=== PATIENT | male | born 1980 | race Caucasian/White ===

== ENCOUNTER 2018-01-13 22:21 | Inpatient (IN) | payer OTHER ==
[~2018-01-13] VITALS: Ht 190.5 cm; Wt 135.6 kg
[~2018-01-13 22:21] MED LIST: AFRIN PUMPMIST15 ML NASB; ALBUTEROL0.09 MG/A1 INH; AMOXIL 875 MG875 MG PO; PREDNISONE 20MG20 MG PO; TESSALON PERLE100 MG PO; ZOFRAN4 M1 SL
--- NOTE | 2018-01-13 22:39 | ED CARDIAC/CP/PALPITATIONS ---
History of Present Illness General Chief Complaint: Chest Pain Stated Complaint: CHEST PAIN, SOB Source: patient, old records Exam Limitations: no limitations Vital Signs & Intake/Output Vital Signs & Intake/Output Vital Signs Date Time Temp Pulse Resp B/P B/P Pulse O2 O2 Flow FiO2 Mean Ox Delivery Rate 01/14 0034 100 Nasal 2.0L Cannula 01/14 0024 103 125/58 01/14 0005 129 18 120/68 98 Nasal 2.0L Cannula 01/14 0000 141 20 110/63 01/13 2359 141 18 110/63 97 Nasal 2.0L Cannula 01/13 2334 99.2 142 18 126/71 98 Room Air 01/13 2308 120 16 108/58 100 Nasal 2.0L Cannula 01/13 2300 160 118/60 01/13 2245 99.2 172 110/59 01/13 2240 99.3 169 20 110/59 97 Room Air ED Intake and Output 01/14 0000 01/13 1200 Intake Total 0 Output Total Balance 0 Intake, Oral 0 Patient 334 lb Weight Weight Standing Scale Measurement Method Allergies Coded Allergies: NO KNOWN ALLERGIES (10/31/14) Reconcile Medications Albuterol Sulfate (Albuterol Sulfate Hfa) 90 MCG HFA.AER.AD 2 PUFF INH Q4-6 PRN PRN SHORTNESS OF BREATH 90 MCG PER PUFF Amoxicillin (Amoxil 875 MG Tablets) 875 MG TAB 1 TAB PO BID SINUSITIS Benzonatate (Tessalon Perle) 100 MG CAPSULE 1 CAP PO TID PRN COUGH Ondansetron (Zofran Odt) 4 MG TAB.RAPDIS 1 ODT SL Q6P PRN NAUSEA OXYMETAZOLINE HCL (Afrin) 0.05 % SPRAY 2 SPRAY NASB BID sinusitis Prednisone 20 MG TABLET 1 TAB PO BID sinusitis Triage Nurses Notes Reviewed? yes Onset: Morning Duration: hour(s):, constant, continues in ED, getting worse Timing: recent history Quality/Severity: moderate, pressure Location: substernal Radiation: no radiation Activities at Onset: activity Prior Chest Pain/Card Workup: no prior chest pain Modifying Factors: Improves With: rest. Worsens With: exercise, movement. Nitro Today/Relief: no nitro taken today Aspirin Today: no aspirin today Associated Symptoms: diaphoresis, fatigue, shortness of breath HPI: The morning prior to admission she reports mild progressive pressure in his chest accompanied with increasing dyspnea on exertion resolved with rest. Prior to admission he awoke diaphoretic with pounding heart and moderate chest heaviness constant nonradiating worse with exertion. He denies fever chills nausea vomiting diarrhea abdominal pain headache dysuria rash bleeding. Past History Travel History Traveled to [place] past 21 day No Medical History Any Pertinent Medical History? see below for history Neurological: NONE EENT: NONE Cardiovascular: NONE Respiratory: NONE Gastrointestinal: NONE Hepatic: NONE Renal: NONE Musculoskeletal: NONE Psychiatric: NONE Endocrine: NONE Blood Disorders: thalassemia minor Cancer(s): NONE Surgical History Surgical History: non-contributory Psychosocial History What is your primary language Citizen Of [place] Family History Hx Contributory? Yes Review of Systems Review of Systems Constitutional: Reports: see HPI, diaphoresis, malaise, weakness. EENTM: Reports: no symptoms. Respiratory: Reports: see HPI, short of breath. Cardiovascular: Reports: see HPI, chest pain, palpitations. GI: Reports: no symptoms. Genitourinary: Reports: no symptoms. Musculoskeletal: Reports: no symptoms. Skin: Reports: no symptoms. Neurological/Psychological: Reports: no symptoms. Hematologic/Endocrine: Reports: no symptoms. Immunologic/Allergic: Reports: no symptoms. All Other Systems: Reviewed and Negative Physical Exam Physical Exam General Appearance: well developed/nourished, alert, awake, anxious, moderate distress, obese Head: atraumatic, normal appearance Eyes: Bilateral: normal appearance, PERRL, EOMI. Ears, Nose, Throat: normal pharynx, normal ENT inspection, hearing grossly normal Neck: normal inspection, supple, full range of motion, no midline tenderness Respiratory: normal breath sounds, chest non-tender, no respiratory distress, quiet respiration, lungs clear Cardiovascular: normal peripheral pulses, tachycardia, irregularly irregular, norml femoral pulses equa Peripheral Pulses: 4+ carotid (R), 4+ carotid (L) Gastrointestinal: normal bowel sounds, soft, non-tender, no organomegaly Back: normal inspection, normal range of motion, no vertebral tenderness Extremities: normal inspection, normal capillary refill, normal range of motion, no edema Neurologic/Psych: no motor/sensory deficits, awake, alert, oriented x 3, normal gait, normal mood/affect, 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 Skin: intact, normal color Lymphatic: no anterior cervical lucio Core Measures ACS in differential dx? Yes No ASA d/t Pharmacological CI CVA/TIA Diagnosis No Sepsis Present: No Sepsis Focused Exam Completed? No Progress Differential Diagnosis: atrial fibrillation, hyperkalemia, hyperthyroid, PSVT Plan of Care: Orders Procedure Date/time Status Heart Healthy Diet 01/14 B Active Pathway - chart 01/14 011 Active House Staff 01/14 0112 Active Patient Data 01/14 011 Active Patient Data 01/14 0048 Active OXYGEN SETUP (GEN) 01/14 33 Active Saline Lock 01/14 33 Active Admit to inpatient 01/14 003 Active Vital Signs 01/14 33 Active Activity/Ambulation 01/14 33 Active Code Status 01/14 33 Active VTE Mechanical Prophylaxis 01/14 UNK Active Intake & Output 01/14 UNK Active TSH REFLEX 01/14 2236 Active TROPONIN LEVEL 01/14 2236 Active PARTIAL THROMBOPLASTIN TIME 01/14 2236 Complete PROTHROMBIN TIME 01/14 2236 Complete MAGNESIUM 01/14 2236 Active COMPREHENSIVE METABOLIC PANEL 01/14 2236 Active CBC WITHOUT DIFFERENTIAL 01/14 2236 Complete EKG 01/13 2222 Active Current Medications Sig/Deb Start time Last Medication Dose Stop Time Status Admin Acetaminophen 650 MG Q6P PRN 01/14 0115 UNVr (Tylenol) Diltiazem HCl 60 MG TID 01/14 0045 UNVr (Cardizem) Heparin Sodium 25,000 UNIT Q24H 01/14 004 UNVr (Porcine) (Heparin) Sodium Chloride 500 ML Diltiazem HCl 20 MG ONCE ONE 01/13 2345 UNVr 01/14 (Cardizem) 01/13 2346 0000 Laboratory Tests 01/13/18 2300: Anion Gap 10, Estimated GFR > 60, BUN/Creatinine Ratio 15.0, Glucose 109 H, Calcium 9.6, Magnesium 2.0, Total Bilirubin 1.2, AST 29, ALT 37, Alkaline Phosphatase 65, Troponin I < 0.01, Total Protein 7.2, Albumin 4.4, Globulin 2.8, Albumin/Globulin Ratio 1.6, TSH &T3 &Free T4 Intrp Pending, PT 13.5 H, INR 1.24 H, APTT 31, CBC w Diff NO MAN DIFF REQ, RBC 6.31 H, MCV 63.5 L, MCH 19.9 L, MCHC 31.4 L, RDW 15.5 H, MPV 9.7, Gran % 65.4, Lymphocytes % 24.8, Monocytes % 8.0, Eosinophils % 1.7, Basophils % 0.1, Absolute Granulocytes 5.6, Absolute Lymphocytes 2.1, Absolute Monocytes 0.7 H, Absolute Eosinophils 0.1, Absolute Basophils 0 Diagnostic Imaging: Viewed by Me: Radiology Read. Discussed w/RAD: Radiology Read. CXR Impression: no acute abnormality (No acute abnormality the chest) Initial ED EKG: normal axis, AFIB Rhythm Strip: atrial fibrillation Departure Departure Disposition: STILL A PATIENT Condition: Stable Clinical Impression Primary Impression: Atrial fibrillation with rapid ventricular response Referrals: Dali CORBETT,Christiano Lucas (PCP/Family) Departure Forms: Customer Survey General Discharge Information Admission Note Spoke With: Rito Adorno MD Documentation of Exam: Documentation of any treatments & extenuating circumstances including Concerns Regarding Discharge (functional status, medication knowledge or non-compliance, living conditions, etc.) that warrant an admission rather than observation: Cardiac monitoring supplemental oxygen IV heparin serial lab exam medication adjustment cardiology evaluation continuing care discharge planning Critical Care Note Critical Care Note Critical Care Time: 30-74 min (45)
[2018-01-13 23:11] LABS: ABSOLUTE BASOPHIL COUNT 0 /CUMM (0.0-0.2); ABSOLUTE EOSINOPHIL COUNT 0.1 /CUMM (0.0-0.7); ABSOLUTE GRANULOCYTE CT 5.6 /CUMM (1.4-6.5); ABSOLUTE LYMPH COUNT 2.1 /CUMM (1.2-3.4); ABSOLUTE MONOCYTE COUNT 0.7 /CUMM (0.10-0.60); BASOPHIL % 0.1 % (0.0-2.0); EOSINOPHIL % 1.7 % (0-5); GRANULOCYTE % 65.4 % (42.2-75.2); HEMATOCRIT 40.1 % (42-52); MEAN CORPUSCULAR HGB 19.9 PG (27.0-31.0); MEAN CORPUSCULAR HGB CONC 31.4 G/DL (33.0-37.0); MEAN CORPUSCULAR VOLUME 63.5 FL (80.0-94.0); MEAN PLATELET VOLUME 9.7 FL (7.4-10.4); PLATELET COUNT 275 /CUMM (130-400); RBC DISTRIBUTION WIDTH 15.5 % (11.5-14.5); RED BLOOD CELL CT 6.31 /CUMM (4.70-6.10); WHITE BLOOD CELL COUNT 8.5 /CUMM (4.8-10.8)
--- NOTE | 2018-01-13 23:13 | RADIOLOGY REPORT ---
EXAMINATION: XR PORTABLE CHEST CLINICAL INFORMATION: Chest pain. Rapid atrial fibrillation COMPARISON: Chest x-ray 10/31/2014 TECHNIQUE: Portable frontal view of the chest was obtained. 10:40 PM FINDINGS: Lung volume is low. There is no acute change. No pulmonary vascular congestion. No infiltrate or pleural effusion. The cardiac and mediastinal contours are unchanged since prior chest x-ray 2014. IMPRESSION: No acute abnormality the chest.
[2018-01-13 23:22] LABS: PT 13.5 SEC (9.4-12.5); PTT 31 SEC (25-37)
--- NOTE | 2018-01-14 00:50 | History & Physical ---
Isaac Fowler 01/14/18 0049: General Information and HPI MD Statement: I have seen and personally examined JOSEPHINE CINTRON and documented this H&P. The patient is a 37 year old M who presented with a patient stated chief complaint of HEART PALPITATIONS, FATIGUE, SHORTNESS OF BREATH. Source of Information: patient Exam Limitations: no limitations History of Present Illness: 37-year old male with PMH of obesity and thalassemia minor who presented to the ED for chest pain and shortness of breath. Patient was in normal state of health until this morning, when he awoke with racing heartbeat and shortness of breath. As the day progressed, he developed chest discomfort. He had difficulty lifting objects and waking up a flight of stairs, both of which are not usual for him. After laying down for bed at night, his heart continued to race and he decided to come to the emergency department. Allergies/Medications Allergies: Coded Allergies: NO KNOWN ALLERGIES (10/31/14) Compliance With Home Meds: GOOD Past History Medical History Neurological: NONE EENT: NONE Cardiovascular: NONE Respiratory: NONE Gastrointestinal: NONE Hepatic: NONE Renal: NONE Musculoskeletal: NONE Psychiatric: NONE Endocrine: NONE Blood Disorders: thalassemia minor Cancer(s): NONE Surgical History Surgical History: non-contributory Past Family/Social History Psychosocial History Where do you live? Home Who Do You Live With? spouse, child Primary Language: Mosotho Smoking Status: Never Smoked ETOH Use: denies use Illicit Drug Use: denies illicit drug use Functional Ability ADLs Independent: dressing, eating, toileting, bathing. 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 EENTM: Reports: no symptoms. Cardiovascular: Reports: chest pain, palpitations. Respiratory: Reports: short of breath. GI: Reports: no symptoms. Genitourinary: Reports: frequency. Musculoskeletal: Reports: no symptoms. Skin: Reports: no symptoms. Neurological/Psychological: Reports: no symptoms. Exam & Diagnostic Data Last 24 Hrs of Vital Signs/I&O Vital Signs Date Time Temp Pulse Resp B/P B/P Pulse O2 O2 Flow FiO2 Mean Ox Delivery Rate 01/14 0300 98.7 120 18 124/80 98 Nasal Cannula 01/14 146 99.2 144 18 124/77 08/16 0146 144 18 124/77 95 Nasal 2.0L Cannula 01/14 0034 100 Nasal 2.0L Cannula 01/14 0024 103 125/58 01/14 0005 129 18 120/68 98 Nasal 2.0L Cannula 01/14 0000 141 20 110/63 01/13 2359 141 18 110/63 97 Nasal 2.0L Cannula 01/13 2334 99.2 142 18 126/71 98 Room Air 01/13 2308 120 16 108/58 100 Nasal 2.0L Cannula 01/13 2300 160 118/60 01/13 2245 99.2 172 110/59 01/13 2240 99.3 169 20 110/59 97 Room Air Intake & Output 01/14 0800 01/14 0000 01/13 1600 Intake Total 0 Output Total Balance 0 Intake, Oral 0 Patient 293 lb 334 lb Weight Weight Bed scale Standing Scale Measurement Method Physical Exam General Appearance Alert, Oriented X3, Cooperative, No Acute Distress, morbidly obese Skin No Rashes, No Breakdown, No Significant Lesion Skin Temp/Moisture Exam: Warm/Dry HEENT Atraumatic, PERRLA, EOMI Neck Supple, No JVD Cardiovascular Normal S1, Normal S2, No Murmurs, tachycardic, irregularly irregular rhythm Lungs Clear to Auscultation, Normal Air Movement Abdomen Normal Bowel Sounds, Soft, No Tenderness, No Masses Neurological Normal Gait, Normal Speech, Normal Tone, Sensation Intact, Cranial Nerves 3-12 NL Extremities No Clubbing, No Cyanosis, No Edema, Normal Pulses Last 24 Hrs of Labs/Ford: Laboratory Tests 01/13/18 2300: Anion Gap 10, Estimated GFR > 60, BUN/Creatinine Ratio 15.0, Glucose 109 H, Calcium 9.6, Magnesium 2.0, Total Bilirubin 1.2, AST 29, ALT 37, Alkaline Phosphatase 65, Troponin I < 0.01, Total Protein 7.2, Albumin 4.4, Globulin 2.8, Albumin/Globulin Ratio 1.6, TSH &T3 &Free T4 Intrp 2.480, PT 13.5 H, INR 1.24 H, APTT 31, CBC w Diff NO MAN DIFF REQ, RBC 6.31 H, MCV 63.5 L, MCH 19.9 L, MCHC 31.4 L, RDW 15.5 H, MPV 9.7, Gran % 65.4, Lymphocytes % 24.8, Monocytes % 8.0, Eosinophils % 1.7, Basophils % 0.1, Absolute Granulocytes 5.6, Absolute Lymphocytes 2.1, Absolute Monocytes 0.7 H, Absolute Eosinophils 0.1, Absolute Basophils 0 Microbiology 01/14 8834 URINE ROUT: Urine Culture - ORD Diagnostic Data EKG Results Afib, HR 150-180 CXR Results No acute abnormality the chest. Other Results CTA Chest No pulmonary embolism or other acute intrathoracic abnormality. Assessment/Plan Assessment: 37 year old male w/ PMH of thalassemia minor and obesity presented to the ED with complaints of chest pain, palpitations and shortness of breath. Found to have new onset A. fib and admitted to telemetry. Problem list/plan: Atrial fibrillation DVT prophylaxis: IV heparin ALPS Heart healthy diet Patient is full code As Ranked By This Provider Problem List: 1. Atrial fibrillation with rapid ventricular response Core Measures/Misc (02/15) Acute Coronary Syndrome ACS Diagnosis: No Congestive Heart Failure Congestive Heart Failure Diagnosis No Cerebrovascular Accident CVA/TIA Diagnosis: No VTE (View Protocol) VTE Risk Factors Acute Medical Illness No Mechanical VTE Prophylaxis d/t N/A MechProphylax Ordered No VTE Pharm Prophylaxis d/t NA PharmProphylax ordered Sepsis (View protocol) Sepsis Present: No If YES complete Sepsis Event Note If YES complete Sepsis Event Note Rito Adorno MD 01/14/18 7236: General Information and HPI Allergies/Medications Home Med list Aspirin (Aspirin*) 81 MG TAB.CHEW 1 TAB PO DAILY BLOOD THINNER Metoprolol Succ XL (Toprol XL) 25 MG TAB 1 TAB PO DAILY A.FIB . Multivitamin (Daily Multiple Vitamin) 1 EACH TABLET 1 TAB PO DAILY SUPPLEMENT (Reported) Core Measures/Misc (02/15) Sepsis (View protocol) If YES complete Sepsis Event Note If YES complete Sepsis Event Note Attending MD Review Statement Attending Statement Attending MD Statement: examined this patient, discuss w/resident/PA/ELECTRONIC SEMICONDUCTOR PROCESSOR, agreed w/resident/PA/ELECTRONIC SEMICONDUCTOR PROCESSOR Attending Assessment/Plan: Patient is seen and examined independently by me. Care plan discussed with medical diagnostic radiographer and resident. I agree with the physical exam findings and plan of care as outlined above with the following changes and additions. 35 yo M with history of thalassemia minor presented with pleuritic chest pain, SOB and palpitation. He has pressure like lower mid chest pleuritic pain since morning with SOB/DEL CID. His chest pain and SOB progressively worsen during the afternoon and by 8:30 pm, he has palpitation and diaphoresis as well. He had just travelled to [place] and returned on 01/09. He denies leg swelling or pain. On exam, heart: irregular, irregular, S1S2. Lungs: clear bilaterally. Ext: No edema. No Homans sign. In the ED, troponin <0.01. Cr 0.8. TSH 2.48. CXR shows no acute infiltrate or edema. CTA chest shows no acute PE. EKG shows A fib at [address] depression in lateral leads Patient is admitted to [facility] for new onset A fib, chest pain, r/o PE. Cardiac monitoring. Check serial troponin/EKG. Start Cardizem and IV heparin drip. Echocardiogram. Cardiology consult. MD PINEDA Muñoz MD, Michael 01/14/18 0522: General Information and HPI MD Statement: I have seen and personally examined JOSEPHINE CINTRON and documented this H&P. The patient is a 37 year old M who presented with a patient stated chief complaint of exertional dyspnea, palpitations, chest tightness. Source of Information: patient, old records Exam Limitations: no limitations History of Present Illness: 37 year old male with PMH of morbid obesity and thallasemia minor presented to the ED with complaints of chest tightness, palpitations, and exertional dyspnea. The patient's symptoms started suddenly this morning upon waking at 6AM. He stated at first he felt "off" and felt a little more short of breath with activity. Later in the day, he developed substernal discomfort. His just had an endometrial ablation and he was taking care of his three children and the . Doing activities he normally does, walking up the stairs, light lifting, he felt extremely short of breath and had to stop and rest to catch his breath, which is extremely unusual for him. He felt exhausted by normal activities. By that afternoon his chest tightness had worsened, pressure like in nature, nonradiating, not exactly painful but uncomfortable, like someone was stepping on his chest. That evening at 9PM, when he laid down he felt his heart racing with palpitations and decided to come to the emergency department. He never smoked, he drinks about 30oz of diet soda daily with no new changes. He rarely drinks alcohol and no coffee or tea. He never used cocaine or any other stimulants. His father had a myocardial infarction at 39 years old. He recently traveled to [place]. He has never had any thyroid problems or recent weight gain. He has weighed over 300lbs for the past 15 years he states. No sick contacts, no fevers, chills, sore throat, cough, diarrhea, or abdominal pain. He denies dysuria but states that he has noticed increased urinary frequency and volume that started today only. In the ED, he initially presented with a heart rate greater than 170 and irregularly rhythm, atrial fibrillation on EKG. He was treated with 10mg and 20mg IVP of diltiazem and started on 60mg PO TID of Cardizem in addition to a heparin drip. He was admitted to telemetry for management of new atrial fibrillation with rapid ventricular response. Allergies/Medications Compliance With Home Meds: GOOD Past History Travel History Traveled to [facility] past 21 day No Medical History Blood Disorders: thalassemia minor Surgical History Surgical History: non-contributory Past Family/Social History Family History Relations & Conditions if any FATHER FH: myocardial infarction, Onset: 30-40. Psychosocial History Where do you live? Home Who Do You Live With? spouse, child Primary Language: [place]o Smoking Status: Never Smoked ETOH Use: occasional use Illicit Drug Use: denies illicit drug use Functional Ability ADLs Independent: dressing, eating, toileting, bathing. 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 Denies: chills, fever. EENTM: Reports: no symptoms. Cardiovascular: Reports: chest pain, palpitations. Respiratory: Reports: short of breath. Denies: cough. GI: Denies: abdominal pain, diarrhea, nausea, vomiting. Genitourinary: Reports: frequency. Denies: dysuria. Musculoskeletal: Reports: no symptoms. Skin: Reports: no symptoms. Neurological/Psychological: Reports: no symptoms. Hematologic/Endocrine: Reports: no symptoms. Immunologic/Allergic: Reports: no symptoms. All Other Systems: Reviewed and Negative Exam & Diagnostic Data Last 24 Hrs of Vital Signs/I&O Vital Signs Date Time Temp Pulse Resp B/P B/P Pulse O2 O2 Flow FiO2 Mean Ox Delivery Rate 01/14 0300 98.7 120 18 124/80 98 Nasal Cannula 01/14 0146 99.2 144 18 124/77 01/14 0146 144 18 124/77 95 Nasal 2.0L Cannula 01/14 0034 100 Nasal 2.0L Cannula 01/14 0024 103 125/58 01/14 0005 129 18 120/68 98 Nasal 2.0L Cannula 01/14 0000 141 20 110/63 01/13 2359 141 18 110/63 97 Nasal 2.0L Cannula 01/13 2334 99.2 142 18 126/71 98 Room Air 01/13 2308 120 16 108/58 100 Nasal 2.0L Cannula 01/13 2300 160 118/60 01/13 2245 99.2 172 110/59 01/13 2240 99.3 169 20 110/59 97 Room Air Intake & Output 01/14 0800 01/14 0000 01/13 1600 Intake Total 0 Output Total Balance 0 Intake, Oral 0 Patient 133.016 kg 151.5 kg Weight Weight Bed scale Standing Scale Measurement Method Physical Exam General Appearance Alert, Oriented X3, Cooperative, No Acute Distress, morbidly obese Neck Supple, No JVD Cardiovascular Normal S1, Normal S2, No Murmurs, tachycardic, irregularly irregular rhythm Lungs Clear to Auscultation, Normal Air Movement Abdomen Normal Bowel Sounds, Soft, No Tenderness, No Masses Neurological Normal Gait, Normal Speech, Normal Tone, Cranial Nerves 3-12 NL Extremities No Clubbing, No Cyanosis, No Edema, Normal Pulses Last 24 Hrs of Labs/Ford: Laboratory Tests 01/13/18 2300: Anion Gap 10, Estimated GFR > 60, BUN/Creatinine Ratio 15.0, Glucose 109 H, Calcium 9.6, Magnesium 2.0, Total Bilirubin 1.2, AST 29, ALT 37, Alkaline Phosphatase 65, Troponin I < 0.01, Total Protein 7.2, Albumin 4.4, Globulin 2.8, Albumin/Globulin Ratio 1.6, TSH &T3 &Free T4 Intrp 2.480, PT 13.5 H, INR 1.24 H, APTT 31, CBC w Diff NO MAN DIFF REQ, RBC 6.31 H, MCV 63.5 L, MCH 19.9 L, MCHC 31.4 L, RDW 15.5 H, MPV 9.7, Gran % 65.4, Lymphocytes % 24.8, Monocytes % 8.0, Eosinophils % 1.7, Basophils % 0.1, Absolute Granulocytes 5.6, Absolute Lymphocytes 2.1, Absolute Monocytes 0.7 H, Absolute Eosinophils 0.1, Absolute Basophils 0 Diagnostic Data EKG Results afib with RVR, HR 170 CXR Results Lung volume is low. There is no acute change. No pulmonary vascular congestion. No infiltrate or pleural effusion. The cardiac and mediastinal contours are unchanged since prior chest x-ray 2014. IMPRESSION: No acute abnormality the chest. Other Results CTA Chest No pulmonary embolism or other acute intrathoracic abnormality. Assessment/Plan Assessment: 37 year old male with PMH of morbid obesity and thallasemia minor presented to the ED with complaints of chest tightness, palpitations, and exertional dyspnea. He was found to be new onset atrial fibrillation with rapid ventricular response and admitted to telemetry. Atrial fibrillation with rapid ventricular response: Received 10 and 20mg IVP diltiazem Continue Cardizem 60mg PO TID, increase dose or frequency as need to maintain HR < 110 Cardiology consultation Continue heparin gtt Patient has a CHADsvasc score of 0, consider aspirin or no anticoagulation Continue anticoagulation for now, cardiology may want to continue if planning cardioversion TSH wnl Check urinalysis and culture for reported increased urinary frequency Check additional troponin and EKG to evaluate for myocardial ischemia CTA negative for pulmonary embolism Check echocardiogram for structural heart disease Patient has morbid obesity and FH of premature CAD, may need stress testing as outpatient Heart healthy diet DVT ppx-on IV heparin gtt Full code the ED with complaints of chest tightness, palpitations, and exertional dyspnea. He was found to be new onset atrial fibrillation with rapid ventricular response and admitted to telemetry. Atrial fibrillation with rapid ventricular response: Received 10 and 20mg IVP diltiazem Continue Cardizem 60mg PO TID, increase dose or frequency as need to maintain HR < 110 Cardiology consultation 37 year old male with PMH of morbid obesity and thallasemia minor presented to the ED with complaints of chest tightness, palpitations, and exertional dyspnea. He was found to be new onset atrial fibrillation with rapid ventricular response and admitted to telemetry. Atrial fibrillation with rapid ventricular response: Received 10 and 20mg IVP diltiazem Continue Cardizem 60mg PO TID, increase dose or frequency as need to maintain HR < 110 Cardiology consultation As Ranked By This Provider Problem List: 1. Atrial fibrillation with rapid ventricular response Core Measures/Misc (02/15) Acute Coronary Syndrome ACS Diagnosis: No Congestive Heart Failure Congestive Heart Failure Diagnosis No Cerebrovascular Accident CVA/TIA Diagnosis: No VTE (View Protocol) VTE Risk Factors Acute Medical Illness No Mechanical VTE Prophylaxis d/t N/A MechProphylax Ordered No VTE Pharm Prophylaxis d/t NA PharmProphylax ordered Sepsis (View protocol) Sepsis Present: No If YES complete Sepsis Event Note If YES complete Sepsis Event Note
--- NOTE | 2018-01-14 02:33 | CT SCAN REPORT ---
EXAMINATION: CT ANGIOGRAM OF THE CHEST WITH AND WITHOUT CONTRAST (CT PULMONARY ANGIOGRAM FOR PE) CLINICAL INFORMATION: Rapid atrial fibrillation COMPARISON: Radiograph 01/13/2018 TECHNIQUE: Prior to contrast administration, noncontrast localization images were obtained. Subsequently, multidetector volumetric imaging was performed from the thoracic inlet to below the diaphragms following the administration of 70 mL Optiray 320 intravenous contrast. No contrast reaction reported. Sagittal, coronal, and MIP oblique sagittal reformatted images were obtained on the CT workstation, uploaded to PACS, and reviewed. Total exam dose-length product 989 mGy-cm. FINDINGS: QUALITY OF STUDY/CONTRAST BOLUS: Satisfactory PULMONARY ARTERIES: No central or segmental pulmonary emboli. THORACIC AORTA: No aneurysm or dissection. LUNG: The central airways are patent. No focal consolidation, nodules or masses. PLEURA: No pleural effusion or pneumothorax. MEDIASTINUM: Normal heart size. No pericardial effusion. No hilar or mediastinal lymphadenopathy. No evidence of septal bowing or right heart strain. CHEST WALL/AXILLA: No axillary or internal mammary lymphadenopathy. OSSEOUS STRUCTURES: No acute or suspicious osseous abnormality. UPPER ABDOMEN: Unremarkable. No reflux of contrast into the hepatic veins to suggest elevated right heart pressures. IMPRESSION: No pulmonary embolism or other acute intrathoracic abnormality. VTE: negative
[2018-01-14 03:00] VITALS: BP 124/80
[2018-01-14] MEDS ORDERED: DAILY MULTIPLE1 EACH PO (05:40)
--- NOTE | 2018-01-14 07:28 | PN- Housestaff ---
Cecy Chiu 01/14/18 0726: Subjective Follow-up For: New onset A. fib Subjective: Overnight patient stayed in A. fib with heart rate gone into the 160s, this morning he has been ranging between 120s-140s. Patient is complaining of chest pressure at the sternum feels like somebody is pushing down with one hand and palpitations. Denies dizziness, abdominal pain, blurry or double vision, tingling or numbness, weakness. Denies fever, night sweats, chills Review of Systems Constitutional: Reports: see HPI. Objective Last 24 Hrs of Vital Signs/I&O Vital Signs Date Time Temp Pulse Resp B/P B/P Pulse O2 O2 Flow FiO2 Mean Ox Delivery Rate 01/14 0300 98.7 120 18 124/80 98 Nasal Cannula 01/14 0146 99.2 144 18 124/77 01/14 0146 144 18 124/77 95 Nasal 2.0L Cannula 01/14 0034 100 Nasal 2.0L Cannula 01/14 0024 103 125/58 01/14 0005 129 18 120/68 98 Nasal 2.0L Cannula 01/14 0000 141 20 110/63 01/13 2359 141 18 110/63 97 Nasal 2.0L Cannula 01/13 2334 99.2 142 18 126/71 98 Room Air 01/13 2308 120 16 108/58 100 Nasal 2.0L Cannula 01/13 2300 160 118/60 01/13 2245 99.2 172 110/59 / 2240 99.3 169 20 110/59 97 Room Air Intake & Output 01/14 0800 01/14 0000 01/13 1600 Intake Total 80 0 Output Total Balance 80 0 Intake, IV 80 Intake, Oral 0 Patient 293 lb 334 lb Weight Weight Bed scale Standing Scale Measurement Method Physical Exam General Appearance: Alert, Oriented X3, Cooperative Cardiovascular: Normal S1, Normal S2, Irregular Lungs: Clear to Auscultation, Normal Air Movement Abdomen: Normal Bowel Sounds, Soft, No Tenderness, Obesity Extremities: No Cyanosis, No Edema, Normal Pulses Vascular: Normal Pulses, Pulses Symmetrical Assessment/Plan Assessment: 37 year old male w/ PMH of thalassemia minor and obesity presented to the ED with complaints of chest pain, palpitations and shortness of breath. Found to have new onset A. fib and admitted to telemetry. Problem list/plan: 1. New onset A. fib 2. Obesity #Atrial fibrillation with rapid ventricular response: Classification paroxysmal A. fib. ChadsVasc of 0. CT of chest negative for pulmonary embolism or intrathoracic abnormality. Patient does not have history of arrhythmias, nor history of hypertension. Possible etiology may be associated with sleep apnea. -Cardiology is following patient -Start metoprolol 50 mg 3 times daily normal sinus rhythm tonight. Will make patient n.p.o. at midnight for possible procedure #Obesity #Thalassemia minor: H/H 12.6/40.1, MCV 63.5. -Continue to monitor DVT prophylaxis: IV heparin ALPS Heart healthy diet Patient is full code Problem List: 1. Atrial fibrillation with rapid ventricular response Pain Ratin Pain Location: n/a Pain Goal: Remain pain free Pain Plan: tylenol Tomorrow's Labs & Rationales: none Milla CORBETT,Delphine 01/14/18 0940: Attending MD Review Statement Attending Statement Attending MD Statement: examined this patient, discuss w/resident/PA/WINDOW FRAMER, agreed w/resident/PA/WINDOW FRAMER, reviewed EMR data (avail), discussed with nursing, discussed with case mgmt, reviewed images Attending Assessment/Plan: 37-year-old male past medical history of thalassemia minor here with new onset atrial fibrillation. No obvious etiology for the A. fib, CTA negative for PE and no long-standing hypertension by history. We spoke to Sidney Loyola MD we are going to start him on metoprolol 50 every 8. If he spontaneously converts given that his chads vas score 0 will stop the anticoagulation. If he does not then there is a thought of JUSTIN cardioversion in a.m. We will continue the heparin for now and follow closely.
[2018-01-14 07:38] VITALS: BP 120/84
--- NOTE | 2018-01-14 08:32 | Cons- Cardiology ---
General Information and HPI Consulting Request Date of Consult: 01/14/18 Requested By: Delphine Loyola MD Reason for Consult: Atrial fibrillation Source of Information: patient, old records Exam Limitations: no limitations History of Present Illness: 37-year old male with PMH of obesity and thalassemia minor who presented to the ED for chest pain and shortness of breath. Patient was in normal state of health until this morning, when he awoke with racing heartbeat and shortness of breath. As the day progressed, he developed chest discomfort. He had difficulty lifting objects and waking up a flight of stairs, both of which are not usual for him. After laying down for bed at night, his heart continued to race and he decided to come to the emergency department. The above was obtained by the admitting resident. Patient denies feeling any palpitations shortness of breath or chest pain prior to yesterday. The above description is accurate. It appears to was the end of the day he started to feel his heart rate go fast and therefore decided to come into the emergency room. He is nondiabetic nonhypertensive has no medical problems except some knee surgery in 1997. He is a non-smoker does not consume alcohol except 3 times a year, there was no recent intake of stimulants or [id number] medications. He admits to snoring when he is in deep sleep but has not been told that he has sleep apnea. He has 3 children twins 12-year-old and a 3-year-old daughter. Sometimes plays basketball with his older sons. There is no history of recent fever infection pleuritic chest pain pneumonia. He has thalassemia minor. Allergies/Medications Allergies: Coded Allergies: NO KNOWN ALLERGIES (10/31/14) Home Med List: Multivitamin (Daily Multiple Vitamin) 1 EACH TABLET 1 TAB PO DAILY SUPPLEMENT (Reported) Current Medications: Current Medications Sig/Deb Start time Last Medication Dose Route Stop Time Status Admin Acetaminophen 650 MG Q6P PRN 01/14 0115 AC PO Diltiazem HCl 125 MG Q12H 01/14 0745 AC Sodium Chloride 100 ML IV Diltiazem HCl 60 MG TID 01/14 0045 DC 01/14 PO 0146 Diltiazem HCl 0 .STK-MED ONE 01/14 0000 DC .ROUTE Diltiazem HCl 20 MG ONCE ONE 01/13 2345 DC 01/14 IV PUSH 08/15 2346 0000 Diltiazem HCl 0 .STK-MED ONE 01/13 2251 DC .ROUTE Diltiazem HCl 10 MG ONCE ONE 01/13 224 DC 01/13 IV PUSH 01/13 2246 2300 Heparin Sodium 0 .STK-MED ONE 01/14 0109 DC (Porcine) .ROUTE Heparin Sodium 5,000 UNIT ONCE ONE 01/14 0045 DC 01/14 (Porcine) IV 01/14 0046 0146 Heparin Sodium 25,000 UNIT Q24H 01/14 0045 AC 01/14 (Porcine) IV 0151 Sodium Chloride 500 ML Sodium Chloride 1,000 ML BOLUS ONE 01/13 230 DC 01/13 IV 01/13 2359 2301 Review of Systems Review of Systems Constitutional: Reports: see HPI. EENTM: Denies: no symptoms. Cardiovascular: Reports: see HPI. Respiratory: Denies: no symptoms. GI: Denies: no symptoms. Genitourinary: Denies: no symptoms. Musculoskeletal: Denies: no symptoms. Skin: Denies: no symptoms. Neurological/Psychological: Denies: no symptoms. Hematologic/Endocrine: Denies: no symptoms. Immunologic/Allergic: Denies: no symptoms. Past History Medical History Blood Transfusion Hx: No Neurological: NONE EENT: NONE Cardiovascular: NONE Respiratory: NONE Gastrointestinal: NONE Hepatic: NONE Renal: NONE Musculoskeletal: ACL SURGERY ON L KNEE Psychiatric: NONE Endocrine: NONE Blood Disorders: thalassemia minor Cancer(s): NONE TELEMEDICINE PHYSICIAN/Reproductive: NONE Surgical History Surgical History: non-contributory Family History Relations & Conditions If Any: FATHER FH: myocardial infarction, Onset: 30-40. Psychosocial History Where Do You Live? Home Who Do You Live With? spouse, child Services at Home: None Primary Language: Portuguese Smoking Status: Never Smoked ETOH Use: occasional use Illicit Drug Use: denies illicit drug use Functional Ability ADLs Independent: dressing, eating, toileting, bathing. 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2 172 110/59 01/13 2240 99.3 169 20 110/59 97 Room Air Intake & Output 01/14 1600 01/14 0800 01/14 0000 01/13 1600 01/13 0801/13 0000 Intake Total 80 0 Output Total Balance 80 0 Intake, IV 80 Intake, Oral 0 Patient 293 lb 334 lb Weight Weight Bed scale Standing Scale Measurement Method Physical Exam: In general exam patient appeared comfortable laying in bed with moderately obese Head normocephalic atraumatic Eyes sclera anicteric conjunctiva showed no pallor extraocular muscles are normal Neck no jugular venous tension no thyroid masses no palpable nodes Chest lungs were clear bilaterally Heart irregular irregular rhythm with a ventricular rate around 110. No audible murmurs Abdomen soft protuberant bowel sounds normal physiological Extremities no clubbing cyanosis or pedal edema Neurological no gross motor or sensory deficits. Labs/Ford Results: Laboratory Tests 01/14 01/14 01/14 0655 0638 0638 Chemistry Sodium Pending Potassium Pending Chloride Pending Carbon Dioxide Pending Anion Gap Pending BUN Pending Creatinine Pending BUN/Creatinine Ratio Pending Magnesium Pending Troponin I Cancelled Pending Urines Urine Color (YEL,AMB,STR) YEL Urine Clarity (CLEAR) CLEAR Urine pH (5.0 - 8.0) 6.5 Ur Specific [place] (1.001 - 1.035) 1.015 Urine Protein (NEG,<30 MG/DL) NEG Urine Ketones (NEG) NEG Urine Nitrite (NEG) NEG Urine Bilirubin (NEG) NEG Urine Urobilinogen (0.1 - 1.0 EU/dl) 0.2 Ur Leukocyte Esterase (NEG) NEG Ur Microscopic EXAM NOT REQUIRED Urine Hemoglobin (NEG) NEG Urine Glucose (N MG/DL) NEG 08/15 2300 Chemistry Sodium (137 - 145 mmol/L) 137 Potassium (3.5 - 5.1 mmol/L) 3.7 Chloride (98 - 107 mmol/L) 103 Carbon Dioxide (22 - 30 mmol/L) 24 Anion Gap (5 - 16) 10 BUN (9 - 20 mg/dL) 12 Creatinine (0.7 - 1.2 mg/dL) 0.8 Estimated GFR (>60 ml/min) > 60 BUN/Creatinine Ratio (7 - 25 %) 15.0 Glucose (65 - 99 mg/dL) 109 H Calcium (8.4 - 10.2 mg/dL) 9.6 Magnesium (1.6 - 2.3 mg/dL) 2.0 Total Bilirubin (0.2 - 1.3 mg/dL) 1.2 AST (17 - 59 U/L) 29 ALT (21 - 72 U/L) 37 Alkaline Phosphatase (< 127 U/L) 65 Troponin I (<0.11 ng/ml) < 0.01 Total Protein (6.3 - 8.2 g/dL) 7.2 Albumin (3.5 - 5.0 g/dL) 4.4 Globulin (1.9 - 4.2 gm/dL) 2.8 Albumin/Globulin Ratio (1.1 - 2.2 %) 1.6 TSH &T3 &Free T4 Intrp (0.27 - 4.20 uIU/mL) 2.480 Coagulation PT (9.4 - 12.5 SEC) 13.5 H INR (0.90 - 1.17) 1.24 H APTT (25 - 37 SEC) 31 Hematology CBC w Diff NO MAN DIFF REQ WBC (4.8 - 10.8 /CUMM) 8.5 RBC (4.70 - 6.10 /CUMM) 6.31 H Hgb (14.0 - 18.0 G/DL) 12.6 L Hct (42 - 52 %) 40.1 L MCV (80.0 - 94.0 FL) 63.5 L MCH (27.0 - 31.0 PG) 19.9 L MCHC (33.0 - 37.0 G/DL) 31.4 L RDW (11.5 - 14.5 %) 15.5 H Plt Count (130 - 400 /CUMM) 275 MPV (7.4 - 10.4 FL) 9.7 Gran % (42.2 - 75.2 %) 65.4 Lymphocytes % (20.5 - 51.1 %) 24.8 Monocytes % (1.7 - 9.3 %) 8.0 Eosinophils % (0 - 5 %) 1.7 Basophils % (0.0 - 2.0 %) 0.1 Absolute Granulocytes (1.4 - 6.5 /CUMM) 5.6 Absolute Lymphocytes (1.2 - 3.4 /CUMM) 2.1 Absolute Monocytes (0.10 - 0.60 /CUMM) 0.7 H Absolute Eosinophils (0.0 - 0.7 /CUMM) 0.1 Absolute Basophils (0.0 - 0.2 /CUMM) 0 Diagnostic Data EKG Results Atrial fibrillation with rapid ventricular response CXR Results Negative Other Results CTA the chestNo pulmonary embolism or other acute intrathoracic abnormality. Assessment/Plan Assessment/Plan In summary this 37-year-old gentleman was admitted with the following problems 1. Atrial fibrillation. New onset. Chads vas score of 0. Suspect may be related to sleep apnea although no obvious etiology yet. Would suggest initiating metoprolol 50 mg every 8 hours for rate control and hopefully he will spontaneously cardiovert. Continue IV heparin for now. Check echocardiogram transthoracic today, if he remains in atrial fibrillation JUSTIN guided electrical cardioversion will be attempted tomorrow. Please keep the patient n.p.o. after midnight. Check thyroid profile. If recurrent atrial fibrillation or in the rare possibility that he is unsuccessfully cardioverted, rate control with possible pulmonary vein isolation procedures may be considered. 2. Obesity. Diet and exercise suggested 3. Thalassemia minor Detailed discussion was carried out with the patient and the medical housestaff. Consult Acknowledgment - Thank you for your consult request.
[2018-01-14 09:28] LABS: PTT 33 SEC (25-37)
[2018-01-14 14:20] VITALS: BP 110/70
--- NOTE | 2018-01-14 15:21 | ECHOCARDIOGRAM REPORT ---
JOSEPHINE CINTRON Age: 37 : 1980 Gender: M Exam Date: 01/14/2018 11:30 Exam Location: 1 [facility] Ht (in): 75 Wt (lb): 293 BSA: 2.70 BP: 120 / 84 Ordering Physician: Josephine Magallanes MD Referring Physician: Josephine Magallanes MD Technologist: Shamir Enriquez RUST Room Number: [id number] Indications: Persistent atrial fibrillation Rhythm: Atrial fibrillation Technical Quality: Poor window FINDINGS Left Ventricle Left ventricle not well visualized, grossly normal. Normal left ventricular ejection fraction estimated at 55-60%. Right Ventricle Normal right ventricular size and function. Right Atrium Normal right atrial size. Left Atrium Mild left atrial dilatation. Mitral Valve Mitral valve normal in structure and function. Trace mitral regurgitation. Aortic Valve Aortic valve is normal in structure and function. Tricuspid Valve Tricuspid valve is normal in structure and function. Trace to mild tricuspid regurgitation. Pulmonic Valve Pulmonic valve not well visualized, grossly normal. Pericardium No pericardial effusion. Great Vessels Normal size aortic root. CONCLUSIONS Poor Echo window. Overall normal left ventricular systolic function.Mild left atrial enlargement.No significant valvular abnormalities noted. Sidney Loyola M.D. (Electronically Signed) Final Date: 14 January 2018 15:19 MEASUREMENTS (Male / Female) Normal Values 2D ECHO LV Diastolic Diameter PLAX 5.3 cm 4.2 - 5.9 / 3.9 - 5.3 cm LV Systolic Diameter PLAX 3.8 cm 2.1 - 4.0 cm LV Fractional Shortening PLAX 28.3 % 25 - 46 % LV Ejection Fraction 2D Teich 54.2 % IVS Diastolic Thickness 1.1 cm LVPW Diastolic Thickness 1.1 cm LV Relative Wall Thickness 0.4 RV Internal Dim ED PLAX 3.2 cm 1.9 - 3.8 cm LVOT Diameter 2.6 cm Aortic Root Diameter 3.3 cm LA Systolic Diameter LX 4.1 cm 3.0 - 4.0 / 2.7 - 3.8 cm LA Volume 60.0 cm 18 - 58 / 22 - 52 cm Ascending Aorta Diameter 2.8 cm DOPPLER AV Peak Velocity 92.4 cm/s AV Peak Gradient 3.4 mmHg AV Mean Velocity 68.1 cm/s AV Mean Gradient 2.0 mmHg AV Velocity Time Integral 15.2 cm LVOT Peak Velocity 53.4 cm/s LVOT Peak Gradient 1.1 mmHg LVOT Mean Velocity 32.0 cm/s LVOT Mean Gradient 1.0 mmHg LVOT Velocity Time Integral 9.4 cm LVOT Stroke Volume 50.2 cm AV Area Cont Eq vti 3.3 cm AV Area Cont Eq pk 3.1 cm MV Peak Velocity 81.3 cm/s MV Peak Gradient 2.6 mmHg MV Mean Velocity 38.2 cm/s MV Mean Gradient 1.0 mmHg Mitral E Point Velocity 66.1 cm/s MV PHT Velocity 89.6 cm/s MV Deceleration [place] 368.0 cm/s MV Pressure Half Time 73.0 ms MV Area PHT 3.0 cm MV Deceleration Time 320.0 ms PV Peak Velocity 60.7 cm/s PV Peak Gradient 1.5 mmHg PV Mean Velocity 41.4 cm/s PV Mean Gradient 1.0 mmHg PV Velocity Time Integral 10.8 cm LV E' Lateral Velocity 16.2 cm/s Mitral E to LV E' Lateral Ratio 4.1 LV E' Septal Velocity 12.4 cm/s Mitral E to LV E' Septal Ratio 5.3
[2018-01-14 17:58] LABS: PTT > 120 SEC (25-37)
[2018-01-14 23:46] VITALS: BP 124/80
[2018-01-15 02:21] LABS: PTT 117 SEC (25-37)
[2018-01-15 06:57] VITALS: BP 112/68
--- NOTE | 2018-01-15 07:02 | PN- Housestaff ---
AramBrooklynnvenancio 01/15/18 0700: Subjective Follow-up For: Atrial fibrillation Subjective: Overnight episode of Saúl low of 38 @ 0358. HR ranging from 38-56. Patient has no complaint of today, denies fever, night sweats, chills, headaches, shortness of breath, dizziness, blurry or double vision Review of Systems Constitutional: Reports: see HPI. Objective Last 24 Hrs of Vital Signs/I&O Vital Signs Date Time Temp Pulse Resp B/P B/P Pulse O2 O2 Flow FiO2 Mean Ox Delivery Rate 01/15 0851 63 112/68 01/15 0657 98.2 54 18 112/68 95 Room Air 01/14 2346 98.5 58 18 124/80 95 Room Air Intake & Output 01/15 1600 01/15 0800 01/15 0000 Intake Total 2659.8 Output Total Balance 2659.8 Intake, IV 139.8 Intake, Oral 2520 Patient 299 lb Weight Physical Exam General Appearance: Alert, Oriented X3, Cooperative Cardiovascular: Regular Rate, Normal S1, Normal S2 Lungs: Clear to Auscultation, Normal Air Movement Abdomen: Normal Bowel Sounds, Soft, No Tenderness, obese Extremities: No Cyanosis, No Edema, Normal Pulses Assessment/Plan Assessment: 37 year old male w/ PMH of thalassemia minor and obesity presented to the ED with complaints of chest pain, palpitations and shortness of breath. Found to have new onset A. fib and admitted to telemetry. Problem list/plan: 1. New onset A. fib 2. Obesity #Paroxysmal atrial fibrillation with rapid ventricular response: Classification paroxysmal A. fib. ChadsVasc of 0. CT of chest negative for pulmonary embolism or intrathoracic abnormality. Patient does not have history of arrhythmias, nor history of hypertension. Possible etiology may be associated with sleep apnea. -Cardiology is following patient 3 times daily ventricular systolic function. Patient has mild left atrial enlargement. conversion. Patient is stable to be discharged home to follow with cardiology. Will also follow-up with pulmonology for formal sleep study patient has symptoms of sleep apnea but has never been formally evaluated. -We will discharge patient with metoprolol succinate 25 mg daily and Aspirin 81 mg daily #Obesity #Thalassemia minor: H/H 12.6/40.1, MCV 63.5. -Continue to monitor DVT prophylaxis: IV heparin ALPS Heart healthy diet Patient is full code We will discharge patient home today with metoprolol succinate 25 mg daily, aspirin 81 mg daily. Patient will be referred to Dr. Perry for formal sleep study, instructed patient to follow-up with PCP and cardiology in 2 weeks. Problem List: 1. Atrial fibrillation with rapid ventricular response Pain Ratin Pain Location: n/a Pain Goal: Remain pain free Pain Plan: tylenol Tomorrow's Labs & Rationales: none Milla CORBETT,Delphine 01/15/18 1008: Attending MD Review Statement Attending Statement Attending MD Statement: examined this patient, discuss w/resident/PA/DIAPHRAGM BUILDER, agreed w/resident/PA/DIAPHRAGM BUILDER, reviewed EMR data (avail), discussed with nursing, discussed with case mgmt, reviewed images Attending Assessment/Plan: Patient is in sinus. Discussed with cardiology and the plan is to discharge in a low-dose beta-syeda with a baby aspirin with close outpatient follow-up. He has obesity and needs to be worked up for obstructive sleep apnea with a formal sleep study. Will give him a referral for the same.
[2018-01-15 08:51] VITALS: BP 112/68
--- NOTE | 2018-01-15 09:57 | PN- Cardiology ---
Subjective Subjective: Patient seen at bedside. He reports his symptoms from yesterday resolved. Denies chest pain, palpitations, dyspnea, PND/orthopnea, lightheadedness/ dizziness. Objective Vital Signs and I&Os Vital Signs Date Time Temp Pulse Resp B/P B/P Pulse O2 O2 Flow FiO2 Mean Ox Delivery Rate 01/15 0851 63 112/68 01/15 0657 98.2 54 18 112/68 95 Room Air 01/14 2346 98.5 58 18 124/80 95 Room Air 01/14 1420 97.5 93 18 110/70 94 Room Air 01/14 1312 91 118/82 Intake & Output 01/15 1600 01/15 0800 01/15 0000 01/14 1600 01/14 0800 01/14 0000 Intake Total 2659.8 460 80 0 Output Total Balance 2659.8 460 80 0 Intake, IV 139.8 80 Intake, Oral 2520 460 0 Patient 135.624 kg 133.016 kg 151.5 kg Weight Weight Bed scale Standing Scale Measurement Method Physical Exam: General: no apparent distress HEENT: NCAT, NO JVD Heart: s1s2, RRR, no MRG Lungs: CTA b/l Abd: soft, nt Ext: no peripheral edema Current Medications: Current Medications Sig/Deb Start time Last Medication Dose Route Stop Time Status Admin Acetaminophen 650 MG Q6P PRN 01/14 0115 AC PO Diltiazem HCl 125 MG Q25H 01/14 2100 DC Sodium Chloride 100 ML IV Diltiazem HCl 125 MG Q50H 01/14 2100 CAN Sodium Chloride 100 ML IV Diltiazem HCl 125 MG Q12H 01/14 0745 DC 01/14 Sodium Chloride 100 ML IV 01/14 2059 0848 Heparin Sodium 7,980 UNIT ONCE ONE 01/14 1130 DC 01/14 (Porcine) SC 01/14 1131 1135 Heparin Sodium 25,000 UNIT Q24H 01/14 0045 DC 01/15 (Porcine) IV 0034 Sodium Chloride 500 ML Metoprolol Tartrate 50 MG TID 01/14 0900 AC 01/15 PO 0851 Potassium Chloride 0 .STK-MED ONE 01/15 0842 DC PO Potassium Chloride 20 MEQ 0730 01/15 0730 DC 01/15 PO 01/15 0731 0851 Results Last 48 Hrs of Labs/Mics: Laboratory Tests 01/15/18 0147: APTT 117 *H 01/14/18 1730: APTT > 120 *H 01/14/18 0840: APTT 33 01/14/18 0655: Urine Color YEL, Urine Clarity CLEAR, Urine pH 6.5, Ur Specific [place] 1.015, Urine Protein NEG, Urine Ketones NEG, Urine Nitrite NEG, Urine Bilirubin NEG, Urine Urobilinogen 0.2, Ur Leukocyte Esterase NEG, Ur Microscopic EXAM NOT REQUIRED, Urine Hemoglobin NEG, Urine Glucose NEG 01/14/18 0638: Troponin I Cancelled 01/14/18 0638: Anion Gap 7, Estimated GFR > 60, BUN/Creatinine Ratio 15.0, Magnesium 1.7, Troponin I < 0.01 01/13/18 2300: Anion Gap 10, Estimated GFR > 60, BUN/Creatinine Ratio 15.0, Glucose 109 H, Calcium 9.6, Magnesium 2.0, Total Bilirubin 1.2, AST 29, ALT 37, Alkaline Phosphatase 65, Troponin I < 0.01, Total Protein 7.2, Albumin 4.4, Globulin 2.8, Albumin/Globulin Ratio 1.6, TSH &T3 &Free T4 Intrp 2.480, PT 13.5 H, INR 1.24 H, APTT 31, CBC w Diff NO MAN DIFF REQ, RBC 6.31 H, MCV 63.5 L, MCH 19.9 L, MCHC 31.4 L, RDW 15.5 H, MPV 9.7, Gran % 65.4, Lymphocytes % 24.8, Monocytes % 8.0, Eosinophils % 1.7, Basophils % 0.1, Absolute Granulocytes 5.6, Absolute Lymphocytes 2.1, Absolute Monocytes 0.7 H, Absolute Eosinophils 0.1, Absolute Basophils 0 Recent Imaging Studies: TTE 01/14/2018: Poor Echo window. Overall normal left ventricular systolic function.Mild left atrial enlargement.No significant valvular abnormalities noted. Telemetry personally reviewed: converted to normal sinus rhythm at 4:49bpm on . currently in normal sinus rhythm Assessment/Plan Assessment/Plan 1. Newly diagnosed atrial fibrillation, converted spontaneously to normal sinus rhythm. 2. Thalassemia minor 3. Possible obstructive sleep apnea Thyroid function studies were normal. Echocardiogram showed no gross abnormalities. Patient is currently in sinus rhythm, is asymptomatic. [id number] is 0. Patient should be discharged on a daily aspirin 81 mg p.o. and low-dose metoprolol. Patient is advised to follow-up with a bottom finisher for polysomnography, and to follow up in our office for further workup and management of paroxysmal atrial fibrillation. Continue telemetry? Yes (until discharge)
[2018-01-15 10:12] LABS: ABSOLUTE BASOPHIL COUNT 0 /CUMM (0.0-0.2); ABSOLUTE EOSINOPHIL COUNT 0.2 /CUMM (0.0-0.7); ABSOLUTE GRANULOCYTE CT 3.5 /CUMM (1.4-6.5); ABSOLUTE LYMPH COUNT 1.6 /CUMM (1.2-3.4); ABSOLUTE MONOCYTE COUNT 0.6 /CUMM (0.10-0.60); BASOPHIL % 0.8 % (0.0-2.0); GRANULOCYTE % 59.2 % (42.2-75.2); HEMATOCRIT 37.7 % (42-52); MEAN CORPUSCULAR HGB 20.2 PG (27.0-31.0); MEAN CORPUSCULAR HGB CONC 31.8 G/DL (33.0-37.0); MEAN CORPUSCULAR VOLUME 63.6 FL (80.0-94.0); PLATELET COUNT 221 /CUMM (130-400); RBC DISTRIBUTION WIDTH 15.4 % (11.5-14.5); RED BLOOD CELL CT 5.92 /CUMM (4.70-6.10)
[2018-01-15 10:23] LABS: PTT 29 SEC (25-37)
[2018-01-15] MEDS ORDERED: TOPROL XL25 M1 PO ×2 (11:00→13:25)
--- NOTE | 2018-01-15 11:05 | Patient Discharge Instructions ---
Discharge Instructions General Discharge Information You were seen/treated for: Atrial fibrillation You had these procedures: No procedures were performed Watch for these problems: Fever, chest pain, shortness of breath Special Instructions: Take medications as directed, follow with nurse care manager, follow up with calender wind up tender Diet Continue normal diet: Yes Recommended Diet: Heart Healthy Activity Full Activity/No Limits: Yes Acute Coronary Syndrome Inclusion Criteria At DC or during hospital stay patient has or had the following: ACS DIAGNOSIS No Discharge Core Measures Meds if any: Prescribed or Continued at Discharge Meds if any: NOT Prescribed or Continued at Discharge Congestive Heart Failure Inclusion Criteria At DC or during hospital stay patient has or had the following: CHF DIAGNOSIS No Discharge Core Measures Meds if any: Prescribed or Continued at Discharge Meds if any: NOT Prescribed or Continued at Discharge Cerebrovascular accident Inclusion Criteria At DC or during hospital stay patient has or had the following: CVA/TIA Diagnosis No Discharge Core Measures Meds if any: Prescribed or Continued at Discharge Meds if any: NOT Prescribed or Continued at Discharge Venous thromboembolism Inclusion Criteria VTE Diagnosis No VTE Type NONE VTE Confirmed by (Test) NONE Discharge Core Measures - Per Current guidelines, there needs to be overlap - treatment for the first 5 days of Warfarin therapy. - If discharged on Warfarin prior to 5 days of - overlap therapy, the patient will need to be - assessed for post discharge needs including - *Post discharge parental anticoagulation - *Warfarin and/or parental anticoagulation education - *Follow up date to check INR post discharge At least 5 days overlap therapy as Inpatient No Meds if any: Prescribed or Continued at Discharge Note: Overlap Therapy is Warfarin and Anticoagulant Meds if any: NOT Prescribed or Continued at Discharge
[2018-01-15] MEDS ORDERED: METOPROLOL TART50 M1 PO ×2 (11:09→12:00)
[2018-01-15] MEDS ORDERED: ASPIRIN81 M4 PO (12:00)
--- NOTE | 2018-01-15 18:06 | Discharge Summary ---
Visit Information Visit Dates Admission Date: 01/14/18 Discharge Date: 01/15/18 Hospital Course Course Attending Physician: Milla CORBETT,Delphine Paulson Primary Care Physician: Dali CORBETT,[facility] Course: Mr. Thomas is a 37-year-old male with a past medical history of obesity and thalassemia minor who presented to the emergency department for chest pain and shortness of breath. Patient had woken up with his heartbeat racing and shortness of breath, with development of chest discomfort throughout the day and decreased tolerance to exercise. In the emergency department EKG showed new onset atrial fibrillation and patient was admitted to telemetry. ED vitals: Temperature 99.3, heart rate 169, respiratory rate 20, blood pressure 110/59, oxygen saturation 97% on room air ED labs: H/H 12.6/40.1, glucose 109 Imagin. Chest x-ray on 01/13/2018no acute abnormality and chest 2. CT angiogram of chest with and without contrast on 01/14/2018no pulmonary embolism or other acute intrathoracic abnormality 3. Echocardiogram on 01/14/2018overall normal left ventricular systolic function, left ventricular ejection fraction 55-60%. Mild left atrial enlargement ED course: Patient was given oral and IV diltiazem, started on IV heparin drip, cardiology consultation was placed Telemetry course 1. Paroxysmal atrial fibrillation Patient Harsha vas score was 0, possible etiology was that A. fib could be related to sleep apnea but no history of arrhythmias present, thyroid panel was normal. Cardizem drip was decreased and eventually discontinued as patient's heart rate improved. Patient was started on metoprolol 50 mg every 8 hours with the hope that patient will spontaneously cardiovert to normal sinus rhythm, if patient would not revert patient was scheduled for transesophageal echocardiogram guided electrical cardioversion. As patient had converted to normal sinus rhythm Cardizem drip was discontinued, IV heparin was discontinued after repeat EKG showed patient in normal sinus rhythm. 2. Obesity Diet and exercise were discussed with patient. 3. Thalassemia minor H/H 12.6/40.1, with MCV of 63.5 patient was monitored as he was asymptomatic. Patient was discharged on 01/15/2018 with instructions to follow with pulmonology for formal sleep study, follow with cardiology and PCP. Patient was discharged with metoprolol succinate 25 mg daily and aspirin 81 mg daily. Allergies: Coded Allergies: NO KNOWN ALLERGIES (10/31/14) Disposition Summary Disposition Principal Diagnosis: Paroxysmal atrial fibrillation Additional Diagnosis: 1 obesity 2 thalassemia minor Discharge Disposition: home or self care Discharge Instructions General Discharge Information Code Status: Full Code Patient's Diet: Regular Patient's Activity: As tolerated Follow-Up Instructions/Appts: Take medications as instructed. Follow-up with nanny/household manager, review nurse, PCP Medications at Discharge Discharge Medications: Continue taking these medications: Multivitamin (Daily Multiple Vitamin) 1 EACH TABLET 1 Tablet ORAL DAILY Comments: NOT GIVEN IN HOSPITAL. Start taking the following new medications: Metoprolol Succ XL (Toprol XL) 25 MG TAB 1 Tablet ORAL DAILY Qty = 30 No Refills Instructions: . Comments: Last Taken: 01/15/18 Time: 0850 AM GIVEN 50MG LOPRESSOR IN HOSPITAL Aspirin (Aspirin*) 81 MG TAB.CHEW 1 Tablet ORAL DAILY Qty = 30 No Refills Copies To: Orlando CORBETT,Clifford Burrows; Milla CORBETT,Sidney Silva; Dali CORBETT,Christiano Lucas
== END 2018-01-15 12:30 | DRG 309 ==
LOC: ERH 22:21 → 1NO 01-14 00:33 → ERHI 01-14 00:33 → ENRESERV 01-14 01:22 → 1NO 01-14 01:56 → ENPENDDIS 01-15 11:08 → 1NO 01-15 12:30
PROVIDERS: Emergency Medicine; Hospitalist; Internal Medicine; Preventive Medicine Public Health & General Preventive Medicine
DX: I48.91 Unspecified atrial fibrillation (principal); Z68.41 Body mass index [BMI] 40.0-44.9, adult; E66.01 Morbid (severe) obesity due to excess calories; D56.3 Thalassemia minor
CPT/HCPCS: 1NSP; 36592; 71045; 81003; 82436; 87086; 93005; 93010; 93306; 96374; 96376; 99291; J1644

== ENCOUNTER 2018-02-16 18:19 | Inpatient (IN) | payer OTHER ==
[~2018-02-16] VITALS: Ht 190.5 cm; Wt 144.7 kg
[~2018-02-16 18:19] MED LIST changes: +ASPIRIN81 M4 PO; +DAILY MULTIPLE1 EACH PO; +METOPROLOL TART50 M1 PO; +TOPROL XL25 M1 PO
--- NOTE | 2018-02-16 19:07 | ED CARDIAC/CP/PALPITATIONS ---
History of Present Illness General Chief Complaint: Chest Pain Stated Complaint: "IM HAVING AN AFIB EVENT" Source: patient Exam Limitations: no limitations Vital Signs & Intake/Output Vital Signs & Intake/Output ED Intake and Output 02/18 0000 02/17 1200 Intake Total 72 Output Total Balance 72 Intake, IV 72 Allergies Coded Allergies: NO KNOWN ALLERGIES (10/31/14) Reconcile Medications Aspirin (Aspirin*) 81 MG TAB.CHEW 1 TAB PO DAILY BLOOD THINNER Flecainide Acetate 50 MG TABLET 1 TAB PO BID A.fib . Metoprolol Succ XL (Toprol XL) 25 MG TAB 1 TAB PO DAILY A.FIB . Multivitamin (Daily Multiple Vitamin) 1 EACH TABLET 1 TAB PO DAILY SUPPLEMENT (Reported) Triage Note: PT TO ED FOR RAPID AFIB, PT REPORTS HE HAS BEEN MONITORING HIS HEART RATE AND NOTICED IT GOT FASTER SINCE 1600. 160 IN TRIAGE. Triage Nurses Notes Reviewed? yes Onset: Abrupt Duration: hour(s):, constant, waxing and waning Timing: single episode today HPI: Patient presents for an onset, abrupt, of palpitations just before 6:00 this evening with associated diaphoresis. Patient has a history of prior paroxysms of atrial fibrillation. He is not currently taking anticoagulants. Past History Travel History Traveled to [place] past 21 day No Medical History Any Pertinent Medical History? 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 Hx Contributory? No Review of Systems Review of Systems Constitutional: Reports: no symptoms. EENTM: Reports: no symptoms. Respiratory: Reports: no symptoms. Cardiovascular: Reports: see HPI. GI: Reports: no symptoms. Genitourinary: Reports: no symptoms. Musculoskeletal: Reports: no symptoms. Skin: Reports: no symptoms. Neurological/Psychological: Reports: no symptoms. Hematologic/Endocrine: Reports: no symptoms. Immunologic/Allergic: Reports: no symptoms. All Other Systems: Reviewed and Negative Physical Exam Physical Exam Cardiovascular: see below Comments: Gen.: Well-nourished, well-developed, no acute respiratory distress. Head: Normocephalic, atraumatic. Eyes: Normal inspection bilaterally Ears: Normal inspection bilaterally Nose: Normal inspection Throat/mouth : Moist mucosa Neck: Supple, full range of motion, no goiter Heart: Rapid irregular rate and rhythm, no murmurs rubs or gallops Lungs: Clear to auscultation bilaterally with normal air entry Chest: Nontender Back: Normal range of motion Abdomen: Soft, nontender, nondistended, normal bowel sounds Extremities: Normal range of motion grossly, equal radial pulses, no cyanosis clubbing or edema Neurologic: Cranial nerves grossly intact, speech is clear Skin: warm and dry Psychiatric: Calm, cooperative, no apparent delusions or hallucinations Core Measures ACS in differential dx? No CVA/TIA Diagnosis No Sepsis Present: No Sepsis Focused Exam Completed? No Progress Differential Diagnosis: AMI, atrial fibrillation, PSVT, PVCs/PACs, unstable angina, V-fib/V-Tach Plan of Care: Orders Procedure Date/time Status Add-on Test (ER Only) 02/16 190 Active MAGNESIUM 02/16 185 Complete THYROID STIMULATING HORMONE 02/16 1839 Complete TROPONIN LEVEL 02/16 1839 Complete PARTIAL THROMBOPLASTIN TIME 02/16 1839 Complete PROTHROMBIN TIME 02/16 1839 Complete COMPREHENSIVE METABOLIC PANEL 02/16 1839 Complete CBC WITHOUT DIFFERENTIAL 02/16 183 Complete EKG 02/16 1820 Active Current Medications Sig/Deb Start time Last Medication Dose Stop Time Status Admin Heparin Sodium 5,000 UNIT ONCE ONE 02/16 2045 UNVr (Porcine) 02/16 2046 (Heparin Bolus) Heparin Sodium 25,000 UNIT Q24H 02/16 2045 UNVr (Porcine) (Heparin) Sodium Chloride 500 ML Diltiazem HCl 125 MG Q16H 02/16 1915 UNVr 02/16 (Cardizem DRIP) 193 Sodium Chloride 100 ML (Normal Saline 0.9%) Laboratory Tests 02/16/18 1850: Anion Gap 7, Estimated GFR > 60, BUN/Creatinine Ratio 13.0, Glucose 105 H, Calcium 8.9, Magnesium 2.2, Total Bilirubin 0.5, AST 19, ALT 29, Alkaline Phosphatase 68, Troponin I < 0.01, Total Protein 6.6, Albumin 3.8, Globulin 2.8, Albumin/Globulin Ratio 1.4, TSH 2.580, PT 12.6 H, INR 1.15, APTT 30, CBC w Diff NO MAN DIFF REQ, RBC 6.10, MCV 63.3 L, MCH 20.0 L, MCHC 31.6 L, RDW 15.5 H, MPV 8.4, Gran % 47.2, Lymphocytes % 34.4, Monocytes % 12.2 H, Eosinophils % 5.8 H, Basophils % 0.4, Absolute Granulocytes 2.8, Absolute Lymphocytes 2.1, Absolute Monocytes 0.7 H, Absolute Eosinophils 0.3, Absolute Basophils 0 CXR Impression: no acute abnormality Initial ED EKG: AFIB (rapid ventricular response), nonspecific ST T wave chg Prior EKG: changed (NSR ON PRIOR) Rhythm Strip: atrial fibrillation Comments: 02/16/2018 8:37:30 PM patient's case discussed with Dr. Pastor who agrees with heparinization and hospitalization for rate control. Departure Departure Disposition: STILL A PATIENT Condition: Stable Clinical Impression Primary Impression: Rapid atrial fibrillation Referrals: Dali CORBETT,Christiano Lucas (PCP/Family) Departure Forms: Customer Survey General Discharge Information Prescriptions: Current Visit Scripts Flecainide Acetate 1 TAB PO BID #30 TAB . Admission Note Spoke With: Stephen Mccann MD Documentation of Exam: Documentation of any treatments & extenuating circumstances including Concerns Regarding Discharge (functional status, medication knowledge or non-compliance, living conditions, etc.) that warrant an admission rather than observation: Patient is in a paroxysm of atrial fibrillation requiring IV Cardizem to control his rate and IV heparin to prevent cardioembolic phenomenon. This patient cannot be treated safely as an outpatient given his need for continuous cardiac monitoring and the IV medications as listed above. While in the hospital he should have serial EKGs and troponins determinations. The underlying cause of his atrial fibrillation should be investigated as well. If his atrial fibrillation does not convert to normal sinus rhythm then cardioversion should be considered. His medication should be reviewed and optimized. I feels patient will require a multiple day hospitalization. Critical Care Note Critical Care Note Critical Care Time: 30-74 min
[2018-02-16 19:11] LABS: ABSOLUTE BASOPHIL COUNT 0 /CUMM (0.0-0.2); ABSOLUTE EOSINOPHIL COUNT 0.3 /CUMM (0.0-0.7); ABSOLUTE GRANULOCYTE CT 2.8 /CUMM (1.4-6.5); ABSOLUTE LYMPH COUNT 2.1 /CUMM (1.2-3.4); ABSOLUTE MONOCYTE COUNT 0.7 /CUMM (0.10-0.60); BASOPHIL % 0.4 % (0.0-2.0); EOSINOPHIL % 5.8 % (0-5); GRANULOCYTE % 47.2 % (42.2-75.2); HEMATOCRIT 38.6 % (42-52); MEAN CORPUSCULAR HGB CONC 31.6 G/DL (33.0-37.0); MEAN CORPUSCULAR VOLUME 63.3 FL (80.0-94.0); MEAN PLATELET VOLUME 8.4 FL (7.4-10.4); PLATELET COUNT 227 /CUMM (130-400); RBC DISTRIBUTION WIDTH 15.5 % (11.5-14.5)
[2018-02-16 19:22] LABS: PT 12.6 SEC (9.4-12.5); PTT 30 SEC (25-37)
--- NOTE | 2018-02-16 19:26 | RADIOLOGY REPORT ---
EXAMINATION: PORTABLE CHEST 1 VIEW CLINICAL INFORMATION: SOB, RAPID AFIB COMPARISON: 01/13/2018 chest x-ray. TECHNIQUE: Portable frontal view of the chest was obtained. FINDINGS: The lungs are hypoexpanded with minimal basilar atelectasis. No focal infiltrate, effusion, edema, or pneumothorax. Cardiac and mediastinal silhouettes are within normal limits for technique. No acute bony abnormality seen. IMPRESSION: Hypoexpanded with minimal basilar atelectasis similar to the prior study. No acute abnormality.
[2018-02-16 20:20] VITALS: BP 140/90
--- NOTE | 2018-02-16 22:14 | History & Physical ---
Arnol Davidson 02/16/18 2213: General Information and HPI MD Statement: I have seen and personally examined JOSEPHINE CINTRON and documented this H&P. The patient is a 37 year old M who presented with a patient stated chief complaint of [one episode of A. fib]. Source of Information: patient Exam Limitations: no limitations History of Present Illness: The patient is a 37-year-old gentleman with a past medical history significant for atrial fibrillation which was recently diagnosed on January 13, 2019 and possible obstructive sleep apnea, who presented to ED with an acute onset palpitation. He states that he has an application on his smart phone which he can check his heart rate and rhythm with, at 4:30 PM he had sweating. He checked his heart rate it was 78-82. At 5:50 PM he could feel his heartbeat, he checked his heart rate it was fluctuating between 80-145. He did not have any chest pain, lightheadedness, dizziness, vertigo, nausea, vomiting, abdominal pain, at that time. He has states that he had some chest discomfort and pressure with a severity 1-2 out of 10. Also his had mentioned that last night he was snoring more than usual. He has been previously checked for hyper thyroidism which was negative. But he always feels warmer than other people around him. He also states that he has one episode of diarrhea almost every day at 4 PM which he believes is due to stress. He had Holter monitoring for 1-1/2 day due to the recent A. fib diagnosis which did not show any abnormality. He has states that he is not an organ donor and he is a full code. He has symptoms of obstructive sleep apnea, he is seen by Dr. Covarrubias and is a scheduled for sleep study. Allergies: No allergies to any known medications or foods Past medical history: Atrial fibrillation diagnosed on January 13, 2018 (on aspirin 81 mg) which converted to normal sinus rhythm automatically, obstructive sleep apnea Surgical history: ACL surgery on left knee almost 20 years ago, thalassemia minor Family history: His father also had obstructive sleep apnea and atrial fibrillation, his mother had one episode of CVA with no sequela 15 years ago. Social history: He has never smoked cigarettes, drinks 3 beers per year, and does not use recreational drugs. 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 Allergies/Medications Allergies: Coded Allergies: NO KNOWN ALLERGIES (10/31/14) Home Med list Aspirin (Aspirin*) 81 MG TAB.CHEW 1 TAB PO DAILY BLOOD THINNER Metoprolol Succ XL (Toprol XL) 25 MG TAB 1 TAB PO DAILY A.FIB . 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 Psychosocial History Who Do You Live With? spouse, child Services at Home: None Primary Language: Lao ETOH Use: denies use Illicit Drug Use: denies illicit drug use Functional Ability ADLs Independent: dressing, eating, toileting, bathing. Ambulation: independent Review of Systems Review of Systems Constitutional: Reports: see HPI. Exam & Diagnostic Data Last 24 Hrs of Vital Signs/I&O Vital Signs Date Time Temp Pulse Resp B/P B/P Pulse O2 O2 Flow FiO2 Mean Ox Delivery Rate 02/17 0102 75 02/16 2304 98.6 109 20 140/90 96 Room Air 02/164 118 02/16 2021 98.1 145 18 142/88 02/17 2020 98.6 110 18 140/90 99 Room Air 02/17 2012 98.1 145 18 142/88 98 02/16 1936 180 02/16 193 98.3 166 18 108/70 02/16 1841 98.3 166 18 108/70 96 Room Air Intake & Output 02/17 0800 02/17 0000 02/16 1600 Intake Total 200 Output Total Balance 200 Intake, IV 80 Intake, Oral 120 Patient 319 lb Weight Weight Reported by Patient Measurement Method Physical Exam General Appearance Alert, Oriented X3, Cooperative, No Acute Distress Skin No Rashes Skin Temp/Moisture Exam: Warm/Dry Sepsis Skin Exam (color): Normal for Ethnicity HEENT Atraumatic, PERRLA, EOMI, Mucous Membr. moist/pink Neck Supple, No JVD, No thryomegaly Cardiovascular No Murmurs, Irregularly irregular rate Lungs Clear to Auscultation, Normal Air Movement Abdomen Normal Bowel Sounds, Soft, No Tenderness, No Hepatospenomegaly Neurological Normal Speech, Strength at 5/5 X4 Ext, Normal Tone, Sensation Intact Extremities No Clubbing, No Cyanosis, No Edema, Normal Pulses, No Tenderness/ Swelling, Old vertical scar below left knee Vascular Normal Pulses, Pulses Symmetrical Sepsis Peripheral Pulse Location: Dorsalis Pedis Sepsis Peripheral Pulse Exam: Normal Sepsis Cap Refill Exam: <2 Sec Last 24 Hrs of Labs/Ford: Laboratory Tests 02/17/18 0049: Troponin I Pending 02/16/18 1850: Anion Gap 7, Estimated GFR > 60, BUN/Creatinine Ratio 13.0, Glucose 105 H, Calcium 8.9, Magnesium 2.2, Total Bilirubin 0.5, AST 19, ALT 29, Alkaline Phosphatase 68, Troponin I < 0.01, Total Protein 6.6, Albumin 3.8, Globulin 2.8, Albumin/Globulin Ratio 1.4, TSH 2.580, PT 12.6 H, INR 1.15, APTT 30, CBC w Diff NO MAN DIFF REQ, RBC 6.10, MCV 63.3 L, MCH 20.0 L, MCHC 31.6 L, RDW 15.5 H, MPV 8.4, Gran % 47.2, Lymphocytes % 34.4, Monocytes % 12.2 H, Eosinophils % 5.8 H, Basophils % 0.4, Absolute Granulocytes 2.8, Absolute Lymphocytes 2.1, Absolute Monocytes 0.7 H, Absolute Eosinophils 0.3, Absolute Basophils 0 Assessment/Plan Assessment: The patient is a 37-year-old male with a past medical history significant for recent onset atrial fibrillation which converted back to normal sinus rhythm automatically. And recent diagnosis of obstructive sleep apnea. Atrial fibrillation: The patient had one more episode of atrial fibrillation. He was recently diagnosed with atrial fibrillation which converted back to normal sinus rhythm with no intervention. He also has sleep apnea which could be the background aggravating factor for atrial fibrillation. He has a sleep study scheduled with Dr. Covarrubias. Couple hours after admission the atrial fibrillation converted to normal sinus rhythm automatically and EKG was obtained. Plan: Cardiac monitoring, 5 minutes IV diltiazem drip, metoprolol, serial EKG and troponins Obstructive sleep apnea: Recently diagnosed, sleep study scheduled with Dr. Covarrubias Plan: He should follow as outpatient As Ranked By This Provider Problem List: 1. Rapid atrial fibrillation Core Measures/Misc (02/15) Acute Coronary Syndrome ACS Diagnosis: No Congestive Heart Failure Congestive Heart Failure Diagnosis No Cerebrovascular Accident CVA/TIA Diagnosis: No VTE (View Protocol) VTE Risk Factors Acute Medical Illness No Mechanical VTE Prophylaxis d/t Other (On IV heparin) No VTE Pharm Prophylaxis d/t NA PharmProphylax ordered Sepsis (View protocol) Sepsis Present: No If YES complete Sepsis Event Note If YES complete Sepsis Event Note Stephen Mccann 02/16/18 2186: Core Measures/Misc (02/15) Sepsis (View protocol) If YES complete Sepsis Event Note If YES complete Sepsis Event Note Attending MD Review Statement Attending Statement Attending MD Statement: examined this patient, discuss w/resident/PA/MARKETING PRODUCTION COORDINATOR, agreed w/resident/PA/MARKETING PRODUCTION COORDINATOR Attending Assessment/Plan: Addendum by . Patient was seen and examined at bedside today ( 02/16/18 ) at 9Pm. Reviewed the history physical done by the resident. Reviewed the past medical family, family, social history. ROS: 10 point system reviewed and negative except as described above. See the resident note for full examination. Labs, EKG, telemetry tracings reviewed. Assessment and plan: #A. fib with RVR. Currently heart rate is around 140s-50s, getting Cardizem drip. Resume his home metoprolol. Can use as needed 5 mg Cardizem IV push every 6 as needed for heart rate more than 120. Patient charts score is 0 do not think patient needs an heparin drip which can be discontinued. Keep n.p.o. for possible cardioversion if the patient does not get converted to sinus rhythm overnight. Cardiology consult. Continue with aspirin. ER spoke to cardiology over the phone. #Obesity, possible obstructive sleep apnea, patient needs sleep studies as an outpatient. sleep apnea might be the reason for his A. fib. Reviewed with the resident. Agree with the rest of the plan as per resident's note. Dr.Ravinder Randy MD. Hospitalist. Pager: [phone], cell: [phone]. Mauricio CORBETT,Kelley 02/17/18 0558: Core Measures/Misc (02/15) Sepsis (View protocol) If YES complete Sepsis Event Note If YES complete Sepsis Event Note Resident Review Statement Resident Statement: examined this patient, discussed with human resources intern, agreed with human resources intern, discussed with family, reviewed EMR data (avail), discussed with nursing , discussed with case mgmt, reviewed images, amended to note Other Findings: Patient is a 37-year-old male with BMI of 39, no significant past history other than an episode of paroxysmal atrial fibrillation December 2017 discharged with aspirin and metoprolol presented with another episode of symptomatic atrial fibrillation. He did have a rough night yesterday secondary to significant congestion and reportedly per snoring more than usual. He was discharged on metoprolol 50 mg twice a day which was decreased to 25 mg 4 days ago. Around 4:30 PM he started experiencing sweating, he was in sinus rhythm around 5:50 PM heart rate in his mobile heart rate free evi did show HR between 60-150 along with significant palpitations which prompted him to come to ED. VS at presentation are afebrile, heart rate 166, blood pressure 108/70 mmHg, on room air. Physical exam - obese, decreased air enty at bases, irregularly irregular heart rate. Labs are unremarkable. Normal TSH. Imaging did show hypoexpanded lungs. Evaluation Likely due to sleep apnea and obesity --> hypoxia leading to Paroxysmal A.fib. The likely sam of recurrence is high. He was started on IV heparin and diltiazem in ER although had a CHADVaSC 0. He converted to NSR in the middle of the night. Now off diltiazem and heparin drips. Plan Admit to telemetry floor Paroxysml A.fib Secondary to sleep apnea * continue home regimen asa 81mg, metoprolol 25mg bid * monitor HR - goal <110 * Cardiology consultation - Dr. Ewing's group * Serial EKGs and troponins * Continue Holter/event monitor Sleep apnea He reports 10 years of snoring, once diagnosed with borderline sleep apnea in the past. * Scheduled for sleep study by Clifford Perry MD in the second week of March * Lifestyle modifications with weight reduction and exercise DVT prophylaxis Subcutaneous heparin CODE STATUS Full code
[2018-02-16 23:04] VITALS: BP 140/90
[2018-02-17 05:37] LABS: PTT 85 SEC (25-37)
[2018-02-17 07:11] VITALS: BP 124/76
--- NOTE | 2018-02-17 07:22 | PN- Housestaff ---
Subjective Follow-up For: Proxysmal Atrial fibrillation with rapid ventricular response Tele-Events Since Last Visit: Patient remained in sinus rhythm with heart rate between [id number]. Initially he was in atrial fibrillation later on he was converted to sinus rhythm. Subjective: No overnight events. Patient remained afebrile. Seen and examined this morning. He denied chest pain, palpitation, nausea, vomiting, chill, fever, abdominal pain dysuria. Patient is going to be discharged today. He was see his dry house worker as outpatient and plan for ablation treatment for atrial fibrillation. Review of Systems Constitutional: Denies: chills, fever. EENTM: Reports: no symptoms. Cardiovascular: Denies: chest pain, palpitations, syncope. Respiratory: Denies: cough, short of breath, sputum production. Gastrointestinal: Denies: abdominal pain, constipation, diarrhea, nausea, vomiting. Genitourinary: Reports: see HPI. Musculoskeletal: Reports: see HPI. Neurological/Psychological: Denies: ataxia, confusion, depressed. Objective Last 24 Hrs of Vital Signs/I&O Vital Signs Date Time Temp Pulse Resp B/P B/P Pulse O2 O2 Flow FiO2 Mean Ox Delivery Rate 02/17 0917 58 100/60 02/17 0711 98.1 61 20 124/76 96 02/17 0102 75 02/16 2304 98.6 109 20 140/90 96 Room Air 02/16 2144 118 02/16 2021 98.1 145 18 142/88 02/17 2020 98.6 110 18 140/90 99 Room Air 02/16 2012 98.1 145 18 142/88 98 02/16 1936 180 02/16 193 98.3 166 18 108/70 02/16 1841 98.3 166 18 10870 96 Room Air Intake & Output 02/17 1600 02/17 0800 02/17 0000 Intake Total 72 200 Output Total Balance 72 200 Intake, IV 72 80 Intake, Oral 120 Patient 319 lb Weight Weight Reported by Patient Measurement Method Physical Exam General Appearance: Alert, Oriented X3, Cooperative Skin Temp/Moisture Exam: Warm/Dry Sepsis Skin Exam (color): Normal for Ethnicity HEENT: Atraumatic, PERRLA, EOMI Neck: Supple Cardiovascular: Normal S1, Normal S2 Lungs: Clear to Auscultation Abdomen: Soft, No Tenderness Neurological: Normal Speech, Strength at 5/5 X4 Ext, Normal Tone Extremities: No Edema Assessment/Plan Assessment: 37 YO M with BMI of 39, PMH of episode of paroxysmal atrial fibrillation December 2017 discharged with aspirin and metoprolol presented with another episode of symptomatic atrial fibrillation. Seeing the patient on telemetry floor for following problems. Proxysmal atrial fibrillation with rapid ventricular response: -Patient presented with atrial fibrillation with rapid ventricular response with complaint of palpitation. -She received pushes of Cardizem twice and later on was continued on Cardizem drip. His rate was under control and was spontaneously converted back to sinus rhythm. His Cardizem drip was discontinued. -Initially patient was kept on IV heparin for stroke prophylaxis when he was in atrial fibrillation but when he converted back to sinus rhythm his IV heparin drip was discontinued. -Continue aspirin -Continue metoprolol 25 mg twice daily -Cardiology recommended flecainide 50 mg twice daily for rhythm control. DVT prophylaxis: Mechanical and subcutaneous heparin CODE STATUS: Full code Problem List: 1. Rapid atrial fibrillation Pain Ratin Pain Location: NONE Pain Goal: Remain pain free Pain Plan: PAIN PATHWAY Tomorrow's Labs & Rationales: NONE
[2018-02-17 08:42] LABS: ABSOLUTE BASOPHIL COUNT 0 /CUMM (0.0-0.2); ABSOLUTE EOSINOPHIL COUNT 0.3 /CUMM (0.0-0.7); ABSOLUTE GRANULOCYTE CT 2.6 /CUMM (1.4-6.5); ABSOLUTE LYMPH COUNT 2.1 /CUMM (1.2-3.4); ABSOLUTE MONOCYTE COUNT 0.5 /CUMM (0.10-0.60); BASOPHIL % 0.6 % (0.0-2.0); EOSINOPHIL % 5.3 % (0-5); GRANULOCYTE % 46.7 % (42.2-75.2); MEAN CORPUSCULAR HGB 20.1 PG (27.0-31.0); MEAN CORPUSCULAR HGB CONC 31.7 G/DL (33.0-37.0); MEAN PLATELET VOLUME 8.6 FL (7.4-10.4); PLATELET COUNT 206 /CUMM (130-400); RBC DISTRIBUTION WIDTH 15.3 % (11.5-14.5); RED BLOOD CELL CT 5.83 /CUMM (4.70-6.10); WHITE BLOOD CELL COUNT 5.6 /CUMM (4.8-10.8)
[2018-02-17 09:11] LABS: MEAN CORPUSCULAR VOLUME 63.5 FL (80.0-94.0)
--- NOTE | 2018-02-17 09:13 | Discharge Summary ---
Visit Information Visit Dates Admission Date: 02/16/18 Discharge Date: 02/17/18 Hospital Course Course Attending Physician: Stephen Mccann MD Primary Care Physician: Dali CORBETT,[facility] Course: 37 YO M, obese, with BMI of 39, PMH of undiagnosed YOLANDA, episode of paroxysmal atrial fibrillation December 2017 discharged with aspirin and metoprolol presented with another episode of symptomatic atrial fibrillation. ED course: Vitals: Temperature 98.3, pulse 166, respiratory rate 18, blood pressure 108/70, saturation 96% on room air. Labs: Disc of 6.0, hemoglobin 12.2, hematocrit 38.6, platelet count 227, sodium 140, potassium 3.8, BUN 13, creatinine 1.0, glucose 105, calcium 8.9, AST 19, ALT 29, alkaline phosphatase 68, troponin less than 0.01 Paroxysmal atrial fibrillation with rapid ventricular response: Patient presented with atrial fibrillation with rapid ventricular response and he was feeling palpitation. Patient received 2 pushes of Cardizem but later on he was started on Cardizem drip to control his heart rate. Cardiology consult was obtained and recommendations were followed. Considering patient was in atrial fibrillation he was started on IV heparin drip to prevent stroke. His aspirin was continued along with metoprolol 25 g twice daily. Later heart rate remained less than 110 and he was converted spontaneously back to sinus rhythm. His Cardizem drip was discontinued and also IV heparin drip discontinued. Patient's CHADsvasc score remains low so over the discharge continued his aspirin. His recent echocardiogram did not show any structural heart disease so cardiology recommended to start flecainide 50 mg twice daily to control his rhythm and patient was instructed to follow his contract management specialist as outpatient for ablation treatment for atrial fibrillation and keep his appointment for cardiac stress test. Patient was also instructed to follow his primary care physician in 1 week after the discharge. Undiagnosed obstructive sleep apnea: Patient is scheduled for sleep study with Dr. Perry as outpatient in March. Patient was advised to follow his business reporter for sleep study. DVT prophylaxis: Mechanical and subcutaneous heparin CODE STATUS: Full code Allergies: Coded Allergies: NO KNOWN ALLERGIES (10/31/14) Pertinent Lab Results: Chest x-ray on 02/16/2018: IMPRESSION: Hypoexpanded with minimal basilar atelectasis similar to the prior study. No acute abnormality. Disposition Summary Disposition Principal Diagnosis: Paroxysmal atrial fibrillation with rapid ventricular response Additional Diagnosis: none Discharge Disposition: home or self care Discharge Instructions General Discharge Information Code Status: Full Code Patient's Diet: Heart healthy diet Patient's Activity: Self-limited Follow-Up Instructions/Appts: Follow-up with your primary care physician in 1 week Follow-up with your contract management specialist in 1 week and schedule appointment for ablation treatment for atrial fibrillation. Follow-up with your business reporter in 1 week for sleep study. Medications at Discharge Discharge Medications: Continue taking these medications: Multivitamin (Daily Multiple Vitamin) 1 EACH TABLET 1 Tablet ORAL DAILY Comments: Last Taken:02/17/18 Time:0900 Aspirin (Aspirin*) 81 MG TAB.CHEW 1 Tablet ORAL DAILY Qty = 30 Comments: Last Taken:02/17/18 Time:0900 Metoprolol Succ XL (Toprol XL) 25 MG TAB 1 Tablet ORAL DAILY Qty = 30 Instructions: . Comments: TAKE TOMORROW 02/18/18 AM Start taking the following new medications: Flecainide Acetate (Flecainide Acetate) 50 MG TABLET 1 Tablet ORAL TWICE DAILY Qty = 30 No Refills Instructions: . Comments: Last Taken:02/17/18 Time:1100 Copies To: Rito Han MD; Dali CORBETT,Christiano Lucas
[2018-02-17 09:17] VITALS: BP 100/60
--- NOTE | 2018-02-17 09:45 | Patient Discharge Instructions ---
Discharge Instructions General Discharge Information You were seen/treated for: Proximal A. fib Watch for these problems: Chest pain, palpitation, nausea, vomiting, lightheaded, loss of consciousness and weakness. If you experience any of these symptoms please come to ED or call to your primary care physician. Special Instructions: Follow-up with your primary care physician in 1 week Follow-up with your per diem clerk in 1 week and talk to about ablation for atrial fibrillation. Follow-up with your vp site for sleep study in 1 week. Diet Recommended Diet: Heart Healthy Activity Activity Self Limited: Yes Acute Coronary Syndrome Inclusion Criteria At DC or during hospital stay patient has or had the following: ACS DIAGNOSIS No Discharge Core Measures Meds if any: Prescribed or Continued at Discharge Meds if any: NOT Prescribed or Continued at Discharge Congestive Heart Failure Inclusion Criteria At DC or during hospital stay patient has or had the following: CHF DIAGNOSIS No Discharge Core Measures Meds if any: Prescribed or Continued at Discharge Meds if any: NOT Prescribed or Continued at Discharge Cerebrovascular accident Inclusion Criteria At DC or during hospital stay patient has or had the following: CVA/TIA Diagnosis No Discharge Core Measures Meds if any: Prescribed or Continued at Discharge Meds if any: NOT Prescribed or Continued at Discharge Venous thromboembolism Inclusion Criteria VTE Diagnosis No VTE Type NONE VTE Confirmed by (Test) NONE Discharge Core Measures - Per Current guidelines, there needs to be overlap - treatment for the first 5 days of Warfarin therapy. - If discharged on Warfarin prior to 5 days of - overlap therapy, the patient will need to be - assessed for post discharge needs including - *Post discharge parental anticoagulation - *Warfarin and/or parental anticoagulation education - *Follow up date to check INR post discharge At least 5 days overlap therapy as Inpatient No Meds if any: Prescribed or Continued at Discharge Note: Overlap Therapy is Warfarin and Anticoagulant Meds if any: NOT Prescribed or Continued at Discharge
[2018-02-17] MEDS ORDERED: FLECAINIDE ACET50 M1 PO ×2 (10:35→12:12)
--- NOTE | 2018-02-17 10:45 | PN- Att Addend ---
Attending Addendum Attending Brief Note Patient seen and examined. Agree with interns note. This is a 37-year-old male with obesity, likely undiagnosed obstructive sleep apnea was here fairly recently with new onset A. fib. Because of a very low chads vascular he was not anticoagulated and he converted to sinus rhythm. He was sent out on aspirin and a beta-syeda. He returns with new onset rapid atrial fibrillation and again on IV Cardizem he spontaneously converted to sinus. I spoke to Dr. Min, the prisoner classification interviewer and we are going to send him out on low-dose flecainide. He is currently on 50 twice daily with the metoprolol and the baby aspirin. He is going to see Dr. Han in the office and likely get an A. fib ablation. He has an appointment for a sleep outpatient sleep study.
--- NOTE | 2018-02-17 11:31 | Cons- Cardiology ---
General Information and HPI Consulting Request Date of Consult: 02/17/18 Requested By: Stephen Mccann MD Reason for Consult: Paroxysmal atrial fibrillation Source of Information: patient, old records History of Present Illness: This is a very pleasant 37-year-old male who was recently diagnosed with paroxysmal atrial fibrillation and was hospitalized here at [facility] last month. He had spontaneously converted to sinus rhythm and was discharged on aspirin and beta-syeda therapy. He followed up in our office and subsequent Holter monitor showed sinus rhythm. He was feeling well at home but then noticed low-level palpitations with diaphoresis and his home heart rate monitor confirmed irregular heartbeat; not associated with severe chest discomfort or dyspnea; denied headache, slurring of speech, syncope, or focal weakness. He is scheduled for outpatient sleep study in the near future. He was initially started on heparin and Cardizem but spontaneously converted to sinus rhythm. This morning he feels well with no residual symptoms. Allergies/Medications Allergies: Coded Allergies: NO KNOWN ALLERGIES (10/31/14) Home Med List: Aspirin (Aspirin*) 81 MG TAB.CHEW 1 TAB PO DAILY BLOOD THINNER Flecainide Acetate 50 MG TABLET 1 TAB PO BID A.fib Metoprolol Succ XL (Toprol XL) 25 MG TAB 1 TAB PO DAILY A.FIB . Multivitamin (Daily Multiple Vitamin) 1 EACH TABLET 1 TAB PO DAILY SUPPLEMENT (Reported) Current Medications: Current Medications Sig/Deb Start time Last Medication Dose Route Stop Time Status Admin Acetaminophen 650 MG Q6P PRN 02/16 2200 AC PO Acetaminophen 1,000 MG Q6P PRN 02/16 2200 AC IV Aspirin 81 MG DAILY 02/17 0900 AC 02/17 PO 0917 Diltiazem HCl 5 MG ONCE ONE 02/16 2030 DC 02/16 IV PUSH 02/16 Diltiazem HCl 0 .STK-MED ONE 02/17 1920 DC IV Diltiazem HCl 0 .STK-MED ONE 02/17 1920 DC .ROUTE Diltiazem HCl 10 MG ONCE ONE 02/16 1915 DC 02/16 IV PUSH 02/16 Diltiazem HCl 125 MG Q16H 02/16 1915 DC 02/16 Sodium Chloride 100 ML IV 1935 Flecainide Acetate 50 MG BID 02/17 1050 AC PO Heparin Sodium 5,000 UNIT Q8 02/17 1400 AC (Porcine) SC Heparin Sodium 0 .STK-MED ONE 02/17 2104 DC (Porcine) .ROUTE Heparin Sodium 5,000 UNIT ONCE ONE 02/16 2045 DC 02/16 (Porcine) IV 02/16 Heparin Sodium 25,000 UNIT Q24H 02/16 2045 DC 02/16 (Porcine) IV 2140 Sodium Chloride 500 ML Metoprolol Succinate 25 MG DAILY 02/17 0015 AC 02/17 PO 916 Multivitamins 1 TAB DAILY 02/17 09 AC 02/17 Therapeutic PO 916 Potassium Chloride 20 MEQ ONCE ONE 02/17 1000 DC PO 02/17 1001 Review of Systems Review of Systems: Review of systems as per HPI. The remainder of a 10 point review of systems was reviewed and was otherwise negative. 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 Psychosocial History Who Do You Live With? spouse, child Services at Home: None Primary Language: Lao Smoking Status: Never Smoked ETOH Use: denies use Illicit Drug Use: denies illicit drug use Functional Ability ADLs Independent: dressing, eating, toileting, bathing. Ambulation: independent Exam & Diagnostic Data Vital Signs and I&O Vital Signs Date Time Temp Pulse Resp B/P B/P Pulse O2 O2 Flow FiO2 Mean Ox Delivery Rate 02/17 917 58 100/60 02/17 0711 98.1 61 20 124/76 96 02/17 0102 75 02/16 2304 98.6 109 20 140/90 96 Room Air 02/164 118 02/16 2021 98.1 145 18 142/88 02/17 2020 98.6 110 18 140/90 99 Room Air 02/17 2012 98.1 145 18 142/88 98 02/16 1936 180 02/16 193 98.3 166 18 108/70 02/16 1841 98.3 166 18 108/70 96 Room Air Intake & Output 02/17 1600 02/17 0800 02/17 0000 02/16 1600 02/16 0800 02/16 0000 Intake Total 72 200 Output Total Balance 72 200 Intake, IV 72 80 Intake, Oral 120 Patient 319 lb Weight Weight Reported by Patient Measurement Method Physical Exam: General: no apparent distress. Alert. Eyes: No obvious scleral icterus. HEENT: No jugular venous distention or abnormal jugular venous pulsations. Cardiovascular: Normal intensity S1/S2. PMI not grossly displaced. Respiratory: Lungs clear to auscultation bilaterally. Abdomen: Soft, nontender with no guarding or rebound tenderness. Musculoskeletal: No clubbing or cyanosis noted Skin: warm Neurologic: No gross focal deficits noted. Lymph: No gross lymphadenopathy. Labs/Ford Results: Laboratory Tests 02/17 02/17 02/17 0635 0420 0049 Chemistry Sodium (137 - 145 mmol/L) 139 Potassium (3.5 - 5.1 mmol/L) 3.9 Chloride (98 - 107 mmol/L) 102 Carbon Dioxide (22 - 30 mmol/L) 27 Anion Gap (5 - 16) 9 BUN (9 - 20 mg/dL) 13 Creatinine (0.7 - 1.2 mg/dL) 0.8 Estimated GFR (>60 ml/min) > 60 BUN/Creatinine Ratio (7 - 25 %) 16.3 Troponin I (<0.11 ng/ml) < 0.01 < 0.01 Coagulation APTT (25 - 37 SEC) 85 H Hematology CBC w Diff NO MAN DIFF REQ WBC (4.8 - 10.8 /CUMM) 5.6 RBC (4.70 - 6.10 /CUMM) 5.83 Hgb (14.0 - 18.0 G/DL) 11.7 L Hct (42 - 52 %) 37.0 L MCV (80.0 - 94.0 FL) 63.5 L MCH (27.0 - 31.0 PG) 20.1 L MCHC (33.0 - 37.0 G/DL) 31.7 L RDW (11.5 - 14.5 %) 15.3 H Plt Count (130 - 400 /CUMM) 206 MPV (7.4 - 10.4 FL) 8.6 Gran % (42.2 - 75.2 %) 46.7 Lymphocytes % (20.5 - 51.1 %) 38.2 Monocytes % (1.7 - 9.3 %) 9.2 Eosinophils % (0 - 5 %) 5.3 H Basophils % (0.0 - 2.0 %) 0.6 Absolute Granulocytes (1.4 - 6.5 /CUMM) 2.6 Absolute Lymphocytes (1.2 - 3.4 /CUMM) 2.1 Absolute Monocytes (0.10 - 0.60 /CUMM) 0.5 Absolute Eosinophils (0.0 - 0.7 /CUMM) 0.3 Absolute Basophils (0.0 - 0.2 /CUMM) 0 02/16 1850 Chemistry Sodium (137 - 145 mmol/L) 140 Potassium (3.5 - 5.1 mmol/L) 3.8 Chloride (98 - 107 mmol/L) 102 Carbon Dioxide (22 - 30 mmol/L) 31 H Anion Gap (5 - 16) 7 BUN (9 - 20 mg/dL) 13 Creatinine (0.7 - 1.2 mg/dL) 1.0 Estimated GFR (>60 ml/min) > 60 BUN/Creatinine Ratio (7 - 25 %) 13.0 Glucose (65 - 99 mg/dL) 105 H Calcium (8.4 - 10.2 mg/dL) 8.9 Magnesium (1.6 - 2.3 mg/dL) 2.2 Total Bilirubin (0.2 - 1.3 mg/dL) 0.5 AST (17 - 59 U/L) 19 ALT (21 - 72 U/L) 29 Alkaline Phosphatase (< 127 U/L) 68 Troponin I (<0.11 ng/ml) < 0.01 Total Protein (6.3 - 8.2 g/dL) 6.6 Albumin (3.5 - 5.0 g/dL) 3.8 Globulin (1.9 - 4.2 gm/dL) 2.8 Albumin/Globulin Ratio (1.1 - 2.2 %) 1.4 TSH (0.270 - 4.200 uIU/mL) 2.580 Coagulation PT (9.4 - 12.5 SEC) 12.6 H INR (0.90 - 1.17) 1.15 APTT (25 - 37 SEC) 30 Hematology CBC w Diff NO MAN DIFF REQ WBC (4.8 - 10.8 /CUMM) 6.0 RBC (4.70 - 6.10 /CUMM) 6.10 Hgb (14.0 - 18.0 G/DL) 12.2 L Hct (42 - 52 %) 38.6 L MCV (80.0 - 94.0 FL) 63.3 L MCH (27.0 - 31.0 PG) 20.0 L MCHC (33.0 - 37.0 G/DL) 31.6 L RDW (11.5 - 14.5 %) 15.5 H Plt Count (130 - 400 /CUMM) 227 MPV (7.4 - 10.4 FL) 8.4 Gran % (42.2 - 75.2 %) 47.2 Lymphocytes % (20.5 - 51.1 %) 34.4 Monocytes % (1.7 - 9.3 %) 12.2 H Eosinophils % (0 - 5 %) 5.8 H Basophils % (0.0 - 2.0 %) 0.4 Absolute Granulocytes (1.4 - 6.5 /CUMM) 2.8 Absolute Lymphocytes (1.2 - 3.4 /CUMM) 2.1 Absolute Monocytes (0.10 - 0.60 /CUMM) 0.7 H Absolute Eosinophils (0.0 - 0.7 /CUMM) 0.3 Absolute Basophils (0.0 - 0.2 /CUMM) 0 Diagnostic Data EKG Results ECG tracings were personally reviewed; initially showed narrow complex tachycardia consistent with rapid atrial fibrillation and subsequently then showed sinus rhythm with narrow complex CXR Results Hypoexpanded with minimal basilar atelectasis similar to the prior study. No acute abnormality. Other Results Echocardiogram Poor Echo window. Overall normal left ventricular systolic function.Mild left atrial enlargement.No significant valvular abnormalities noted. Sidney Loyola M.D. (Electronically Signed) Final Date: 14 January 2018 15:19 Telemetry tracings were personally reviewed and showed atrial fibrillation with spontaneous conversion to sinus rhythm Assessment/Plan Assessment/Plan 1. Recurrent symptomatic paroxysmal atrial fibrillation with tachycardia and with spontaneous conversion to sinus rhythm 2. Possible sleep apnea The patient has again spontaneously converted to sinus rhythm. Recent echocardiogram confirmed no major structural heart disease. Troponins are negative. I had an extensive discussion with the patient about treatment options and agree that rhythm control is an optimal strategy given recurrent symptomatic atrial for ablation. Continue on daily aspirin and beta-syeda; not starting anticoagulation at this time due to his chads vasc score of 0. Start flecainide 50 mg p.o. twice daily. Follow-up in our office within 1 week and we will plan to refer him for atrial fibrillation ablation in the near future. Risks versus benefits of this plan were discussed at length. He will keep his already scheduled outpatient stress test appointment and sleep study appointment. Lobito Min MD [facility] Consult Acknowledgment - Thank you for your consult request.
== END 2018-02-17 12:00 | DRG 310 ==
LOC: ERH 18:19 → 1NO 20:46 → ERHI 20:46 → ENRESERV 21:20 → ENTRNSPT 21:58 → 1NO 21:58 → EDTRNSPTSTS 22:14 → 1NO 22:19 → CMPTRNSPT 22:33 → ENPENDDIS 02-17 11:35 → 1NO 02-17 12:00
PROVIDERS: Emergency Medicine; Internal Medicine; Physician Assistant Medical
DX: I48.0 Paroxysmal atrial fibrillation (principal); D56.3 Thalassemia minor; G47.33 Obstructive sleep apnea (adult) (pediatric); E66.9 Obesity, unspecified; Z68.39 Body mass index [BMI] 39.0-39.9, adult
CPT/HCPCS: 1NSP; 36592; 71045; 82436; 93005; 93010; J1644; J3490